=== PATIENT | male | born 1950 | race Two or more races ===

== ENCOUNTER → 2017-07-05 | Outpatient (CLI) | payer MEDICARE, OTHER | END | disposition home or self-care (01) | LOC: CT 11:05 | PROVIDERS: ATTEND Orthopaedic Surgery | DX: M17.12 Unilateral primary osteoarthritis, left knee (principal) | CPT/HCPCS: 73700 ==

== ENCOUNTER 2017-08-07 02:13 | Inpatient (IN) | payer MEDICARE ==
[2017-08-07] VITALS (14 sets, daily range): BP systolic 113–181; BP diastolic 69–98
[~2017-08-07] VITALS: Ht 170.2 cm; Wt 105.2 kg
[~2017-08-07 02:13] MED LIST: ALPR0.5T PO; LOSA100T6 PO; MECL25TA3 PO
[2017-08-07] MEDS ORDERED: NS 250ML 250 ML IV ONE ×2 (04:34→07:33)
[2017-08-07] MEDS ORDERED: ANCEF ONE (04:34)
[2017-08-07] MEDS ORDERED: ANCEF 3 GM in NS 100ML 100 ML IV ONE (06:00)
[2017-08-07] MEDS ORDERED: LACTATED RINGERS 1,000 ML IV SCH ×2 (06:00→11:00)
[2017-08-07] MEDS ORDERED: TRANSDERM-SCOP TD STA (07:04)
[2017-08-07] MEDS ORDERED: DECADRON ONE (07:12)
[2017-08-07] MEDS ORDERED: NAROPIN 0.5% 5 MG/ML VIAL ONE (07:12)
[2017-08-07] MEDS ORDERED: CLONIDINE 1,000 MCG/10 ML VIAL EP ONE (07:13)
[2017-08-07] MEDS ORDERED: NAROPIN 0.2% 40 MG/20 ML VIAL ONE (07:13)
[2017-08-07] MEDS ORDERED: TYLENOL PO ONE (07:30)
[2017-08-07] MEDS ORDERED: NEURONTIN PO SCH (07:30)
[2017-08-07] MEDS ORDERED: CELEBREX PO ONE ×2 (07:30→09:00)
[2017-08-07] MEDS: TYLENOL PO SCH ×3 (07:30→20:44)
[2017-08-07] MEDS ORDERED: NS 3000ML IRR IR ONE (07:33)
[2017-08-07] MEDS ORDERED: SODIUM CHLORIDE IR ONE (07:33)
[2017-08-07] MEDS ORDERED: NS 100ML 200 ML IV ONE (07:33)
[2017-08-07] MEDS ORDERED: LIDOCAINE 2% VIAL ONE ×2 (07:48→07:55)
[2017-08-07] MEDS ORDERED: TRANEXAMIC ACID IV ONE (07:52)
[2017-08-07] MEDS ORDERED: NEOSTIGMINE ONE (07:53)
[2017-08-07] MEDS ORDERED: ZOFRAN ONE (07:54)
[2017-08-07] MEDS ORDERED: ZEMURON IV ONE (07:54)
[2017-08-07] MEDS ORDERED: VERSED ONE (07:54)
[2017-08-07] MEDS ORDERED: SUBLIMAZE ONE ×2 (07:55→09:28)
[2017-08-07] MEDS ORDERED: DIPRIVAN IV ONE (07:55)
[2017-08-07] MEDS ORDERED: EPHEDRINE SULFATE ONE (07:56)
[2017-08-07] MEDS ORDERED: KENALOG-40 ONE (08:11)
[2017-08-07] MEDS ORDERED: AMBIEN PO PRN (11:00)
[2017-08-07] MEDS ORDERED: CEPACOL SORE THROAT LOZENGE MM PRN (11:00)
[2017-08-07] MEDS: LACTATED RINGERS 1,000 ML IV SCH ×2 (11:00→20:45)
[2017-08-07] MEDS ORDERED: MORPHINE SULFATE IV PRN (11:00)
--- NOTE | 2017-08-07 13:01 | HPH ---
ADMIT DATE: 08/07/2017 CHIEF COMPLAINT: Painful left knee. HISTORY OF PRESENT ILLNESS: A 67-year-old male with left knee pain for 2 years. 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 He has pain with just household ambulation as well as significant night pain. He has tried Tylenol as well as Aleve and off the shelf bracing. He has had several cortisone injections with only temporary relief. The patient is being admitted for left total knee arthroplasty. MEDICATIONS: Include losartan. PAST MEDICAL HISTORY: Medical problems include hypertension as well as anxiety and prostate cancer. PAST SURGICAL HISTORY: Surgical procedures none. SOCIAL HISTORY: The patient lives in [place], [place]. He does not smoke currently. He does not drink alcohol. He lives with his family. ALLERGIES: HE IS ALLERGIC TO SULFA AND CIPRO. FAMILY HISTORY: His family history is unknown because he is adopted. REVIEW OF SYSTEMS: The patient's review of systems is negative for chest pain, shortness of breath, nausea, vomiting, melena, hematochezia, dysuria, hematuria, fever, chills or weight loss. PHYSICAL EXAMINATION: VITAL SIGNS: Shows that he is 5 feet 7 inches. He weighs 230 pounds. GENERAL APPEARANCE: Is that of a healthy 67-year-old male, in no acute distress. HEENT: Within normal limits for his age. CHEST: Clear to auscultation. HEART: Regular rate and rhythm, no murmur. ABDOMEN: Soft, nontender, good bowel sounds. EXTREMITIES: The patient's left knee has an obvious varus deformity. There are large osteophytes medially. His knee goes out into full extension, has 110 degrees of flexion. There is obvious crepitation with flexion, extension and a 2+ effusion. His ligaments are stable medially and laterally as well as anteriorly and posteriorly. Hip has good range of motion with no pain. NEUROLOGIC: The patient is awake and alert. He is oriented x 3. Cranial nerves 2-12 are grossly intact. He has 5/5 strength in all muscle groups of the upper extremities as well as both lower extremities. IMAGING STUDIES: The patient's x-rays about the left knee show that he is bone -on-bone in all 3 compartments about the left knee with large osteophytes in all 3 compartments. Right knee has a similar exam, just not quite as severe. ASSESSMENT: Osteoarthritis of both knees, left worse than right. Other diagnoses include hypertension and anxiety. PLAN: The patient is being admitted for left total knee arthroplasty. He also wanted his right knee injected with cortisone while he was under anesthesia. The risks and hazards of the procedure have been discussed with the patient. He understands the risk involved and wants to proceed as planned. Kiet Gonsalves MD DR: TANIKA/puma JOB# [id number]
[2017-08-07] MEDS: ULTRAM PO SCH ×3 (13:09→20:00)
--- NOTE | 2017-08-07 13:18 | OPH ---
DATE OF SURGERY: 08/07/2017 PREOPERATIVE DIAGNOSIS: Osteoarthritis of the left knee. POSTOPERATIVE DIAGNOSIS: Osteoarthritis of the left knee. OPERATIVE PROCEDURE: Left total knee arthroplasty using Medacta, size 5 femur, size 5 tibia, 13 mm insert and a large dome patella. All components were cemented. SURGEON: Kiet Gonsalves MD ANESTHESIA: General endotracheal. TOURNIQUET TIME: 72 minutes at 300 mmHg. DRAINS: None. BLOOD LOSS: 400 mL. DESCRIPTION OF INDICATIONS: The patient is a 67-year-old male with left knee pain for the last 2 years. 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 He has night pain as well as pain with just household ambulation. He is no better with Tylenol and Aleve. He has tried off the shelf bracing as well as cortisone injections and home physical therapy program. He has full range of motion of the knee and obvious varus deformity, large osteophytes medially, 2+ effusion. The x-rays show that he is tricompartmentally qoql-og-fhuq about the left knee. The patient also has a significant amount of OA about the right knee and he wanted his right knee injected today with cortisone when he was under anesthesia. DESCRIPTION OF PROCEDURE: The patient was placed in the operating table in the supine position. A general endotracheal anesthetic was induced without difficulty. The right knee was prepped with alcohol and through a superior lateral portal it was injected with 40 mg of Kenalog. The patient then had the well-padded tourniquet placed around the left thigh. The left lower extremity was then sterilely prepped and draped. The patient had the leg exsanguinated with an Esmarch and then the tourniquet was inflated to 300 mmHg. The knee was flexed to 90 degrees. An anterior incision was made. The incision was taken through the skin and the subcutaneous tissues. The patient had the full thickness flaps developed medially and laterally. The patient then had a medial parapatellar arthrotomy performed. Patella was deviated laterally. The medial and lateral meniscectomies were performed. The medial capsule and the pes anserinus were released around the posterior medial corner. The patient then had the [employer] femoral cutting guide attached to the distal femur and held into position with multiple pins. The distal femoral cut was then made with the power saw. The patient then had the size 5 #2 jig applied to the distal femur. We elevated anteriorly approximately 2 mm to prevent notching and then held the cutting block into position with 2 screws and 2 pins. The anterior and posterior femoral cuts were made as were the chamfer cuts. Tibia was subluxed anteriorly. The medial and lateral meniscectomies were completed. The patient had the anterior and posterior cruciate ligaments excised. The patient then had the tibial cutting block applied to the proximal tibia and held into position with multiple pins. Tibial cut was then made with the power saw. The patient then had the tibia subluxed anteriorly. We then started with a #10 flexion, extension blocks and worked up to a size 13. The 13 cutting block had good stability at 90 degrees of flexion and had full extension with the 13 mm block. The size 5 tibial trial was used and had good coverage. The size 5 trial was held into position with 2 pins. The central drill hole was made and then the cruciate punch was used to stabilize the tibial trial block. A trial reduction was then done with a size 5 femur, a size 5 tibia, a 13 mm insert. The knee went out into full extension. He had 120 degrees of flexion. There was excellent medial and lateral stability throughout. The patient then had the patella everted. The peripheral osteophytes were trimmed and the patellar cut was made and there were still 16 mm patella remaining. The drill holes were made and a large dome patella had the best coverage. There was good tracking of the patella. The final medial and lateral femoral drill holes were made. The femoral sulcus cut was made. The trial components were then removed from the distal femur. The wounds were copiously irrigated and the bone ends were dried. A size 5 tibial component was cemented into position. A size 13 polyethylene insert was impacted and held into position with an anterior screw. The size 5 femoral component was cemented as was the patella. The wound was irrigated with Betadine-containing solution for 3 minutes. The patient then had the excess cement removed after the cement had dried. The tourniquet was released, the bleeding was controlled with the Aquamantys. The capsule was closed with a #2 PDS in interrupted [id number] manner. The joint was injected with a gram of tranexamic acid in 100 mL of saline. The subcutaneous was closed with 2-0 Monocryl barbed in a running manner and then the skin was closed with robert. The patient was extubated in the operating room after a medium size Aquacel dressing was applied and the compressive dressing consisting of 4 x 4s, ABD pads, cast padding and Chriss wrap. The patient was sent to recovery in stable condition. Kiet Gonsalves MD DR: TANIKA/puma JOB# [id number]
[2017-08-07] MEDS: ANCEF 3 GM in NS 1000ML 100 ML IV SCH ×2 (14:38→21:39)
--- NOTE | 2017-08-07 15:19 | PRM.PN ---
Subjective Subjective Date: August 07, 2017 Time: 15:17 Subjective Awake and alert Pain ok VSS Able to dorsiflex toes and ankleon left Stable Patient History: FH: migraines 19 CHILD No known health problems 19 CHILD 19 CHILD No Family History of: Alzheimer's disease Asthma Cerebrovascular disorder Chronic obstructive pulmonary disease Congestive heart failure Diabetes insipidus Diabetes mellitus Hypertension Parkinson's disease VTE VTE Risk Total Score: 4 VTE Risk Score VTE Risk: Score 0-1 = Low Risk (Aggressive mobilization; early ambulation; no VTE prophylaxis required) Score 2: Moderate Risk (Intermittent/Pneumatic Compression Device OR Lovenox/Heparin/Coumadin) Score 3-4: High Risk (Intermittent/Pneumatic Compression Device AND Lovenox/Heparin/Coumadin) Score > or =5: Highest Risk (Intermittent/Pneumatic Compression Device AND Lovenox/Heparin/Coumadin) Review of Systems Allergies: Coded Allergies: Sulfa (Sulfonamide Antibiotics) (Verified Allergy, Severe, Rash, 08/02/17) ciprofloxacin (Unverified Allergy, Unknown, Rash, 08/02/17) Scheduled Losartan Potassium (Losartan Potassium), 1 TAB PO DAILY, (Reported) Scheduled PRN Alprazolam (Xanax), 0.5 TAB PO HS PRN for INSOMNIA, (Reported) Meclizine Hcl (Meclizine Hcl), 1 TAB PO TID PRN for VERTIGO, (Reported) Objective Vitals and I/O Vital Sign - Last 24 Hours 08/07/17 08/07/17 08/07/17 08/07/17 05:52 05:52 07:26 07:31 Temp 97.3 Pulse 81 74 67 Resp B/P (MAP) 181/98 (125) 175/80 (111) 160/94 (116) Pulse Ox 98 100 99 O2 Delivery Room Air Room Air Nasal Canula Nasal Canula O2 Flow Rate 2 2 08/07/17 08/07/17 08/07/17 08/07/17 07:36 07:41 07:46 09:42 Temp 98.1 Pulse 77 68 69 74 Resp 18 B/P (MAP) 162/72 (102) 171/81 (111) 161/69 (99) 113/71 (85) Pulse Ox 99 99 99 98 O2 Delivery Nasal Canula Nasal Canula Nasal Canula Nasal Canula O2 Flow Rate 2 2 2 3 08/07/17 08/07/17 08/07/17 08/07/17 10:41 10:41 10:56 11:09 Temp 98.9 98.1 98.1 Pulse 84 77 80 Resp 18 B/P (MAP) 163/92 (115) 156/90 (112) 165/79 (107) Pulse Ox 99 94 96 O2 Delivery Face Tent Room Air Room Air O2 Flow Rate 5 5 08/07/17 08/07/17 08/07/17 08/07/17 11:18 11:30 12:17 15:10 Temp 98.7 98.0 Pulse 82 64 78 Resp 18 18 12 B/P (MAP) 162/85 (110) 152/94 (113) Pulse Ox 98 100 99 O2 Delivery Nasal Canula Room Air Nasal Cannula Nasal Cannula O2 Flow Rate 2 2.00 1.00 FiO2 24 08/07/17 15:11 Resp 12 Pulse Ox 99 Medication Reconciliation Scheduled Losartan Potassium (Losartan Potassium), 1 TAB PO DAILY, (Reported) Scheduled PRN Alprazolam (Xanax), 0.5 TAB PO HS PRN for INSOMNIA, (Reported) Meclizine Hcl (Meclizine Hcl), 1 TAB PO TID PRN for VERTIGO, (Reported) Course Blood Pressure Systolic: 152 Blood Pressure Diastolic: 94 Blood Pressure Mean: 113 Assessment/Plan Assessment/Plan Patient History: FH: migraines 19 CHILD No known health problems 19 CHILD 19 CHILD No Family History of: Alzheimer's disease Asthma Cerebrovascular disorder Chronic obstructive pulmonary disease Congestive heart failure Diabetes insipidus Diabetes mellitus Hypertension Parkinson's disease AUDREY REED MD August 07, 2017 15:19
[2017-08-07] MEDS ORDERED: ANTIVERT PO PRN (17:30)
[2017-08-07] MEDS ORDERED: XANAX PO PRN (17:30)
[2017-08-07 18:05] LABS: HEMOGLOBIN 13.5 g/dL (13.9-16.3); MEAN CELL HGB 28.2 pg (26-34); MEAN CELL HGB CONCENTRATION 32.2 g/dL (33-37); MEAN CORP VOLUME 87.7 fL (78-100); MEAN PLATELET VOLUME 10.1 fL (7.8-11.0); RED CELL DISTRIBUTION WIDTH 14.8 % (11.5-14.5); WHITE BLOOD CELL 15.2 10^3/uL (4.5-11.0)
[2017-08-07] MEDS: ULTRAM PO PRN (20:45)
[2017-08-07] MEDS ORDERED: CELEBREX ONE (22:40)
[2017-08-08] MEDS: ULTRAM PO PRN ×4 (00:16→23:56)
[2017-08-08 00:42] VITALS: BP 109/64
[2017-08-08] MEDS: TYLENOL PO SCH ×4 (01:30→20:44)
[2017-08-08] MEDS: ULTRAM PO SCH ×6 (04:00→20:00)
[2017-08-08 05:00] VITALS: BP 121/67
[2017-08-08 05:12] LABS: HEMOGLOBIN 12.5 g/dL (13.9-16.3); MEAN CELL HGB 28.5 pg (26-34); MEAN CELL HGB CONCENTRATION 32.6 g/dL (33-37); MEAN CORP VOLUME 87.5 fL (78-100); MEAN PLATELET VOLUME 9.9 fL (7.8-11.0); RED CELL DISTRIBUTION WIDTH 14.7 % (11.5-14.5); WHITE BLOOD CELL 14.6 10^3/uL (4.5-11.0)
[2017-08-08] MEDS: ANCEF 3 GM in NS 1000ML 100 ML IV SCH (05:38)
[2017-08-08] MEDS ORDERED: NEURONTIN PO SCH (07:30)
[2017-08-08 08:32] VITALS: BP 150/81
[2017-08-08] MEDS: XARELTO PO SCH (08:34)
[2017-08-08] MEDS: COZAAR PO SCH (08:36)
[2017-08-08] MEDS: COLACE PO SCH (08:36)
[2017-08-08] MEDS: PEPCID PO SCH (08:36)
--- NOTE | 2017-08-08 09:12 | PRM.PN ---
Subjective Subjective Date: August 08, 2017 Time: 09:10 Subjective Sitting up at bedside Able to perform SLR Painok VSS HGB 12.5 Postop anemia expected Start PT Patient History: FH: migraines 19 CHILD No known health problems 19 CHILD 19 CHILD No Family History of: Alzheimer's disease Asthma Cerebrovascular disorder Chronic obstructive pulmonary disease Congestive heart failure Diabetes insipidus Diabetes mellitus Hypertension Parkinson's disease VTE VTE Risk Total Score: 4 VTE Risk Score VTE Risk: Score 0-1 = Low Risk (Aggressive mobilization; early ambulation; no VTE prophylaxis required) Score 2: Moderate Risk (Intermittent/Pneumatic Compression Device OR Lovenox/Heparin/Coumadin) Score 3-4: High Risk (Intermittent/Pneumatic Compression Device AND Lovenox/Heparin/Coumadin) Score > or =5: Highest Risk (Intermittent/Pneumatic Compression Device AND Lovenox/Heparin/Coumadin) Review of Systems Allergies: Coded Allergies: Sulfa (Sulfonamide Antibiotics) (Verified Allergy, Severe, Rash, 08/02/17) ciprofloxacin (Unverified Allergy, Unknown, Rash, 08/02/17) Scheduled Losartan Potassium (Losartan Potassium), 1 TAB PO DAILY, (Reported) Scheduled PRN Alprazolam (Xanax), 0.5 TAB PO HS PRN for INSOMNIA, (Reported) Meclizine Hcl (Meclizine Hcl), 1 TAB PO TID PRN for VERTIGO, (Reported) Objective Vitals and I/O Vital Sign - Last 24 Hours 08/07/17 08/07/17 08/07/17 08/07/17 09:42 10:41 10:41 10:56 Temp 98.1 98.9 98.1 Pulse 74 84 77 Resp 18 B/P (MAP) 113/71 (85) 163/92 (115) 156/90 (112) Pulse Ox 98 99 94 O2 Delivery Nasal Canula Face Tent Room Air O2 Flow Rate 3 5 5 08/07/17 08/07/17 08/07/17 08/07/17 11:09 11:18 11:30 12:17 Temp 98.1 98.7 98.0 Pulse 80 82 64 Resp 18 18 18 B/P (MAP) 165/79 (107) 162/85 (110) 152/94 (113) Pulse Ox 96 98 100 O2 Delivery Room Air Nasal Canula Room Air Nasal Cannula O2 Flow Rate 2 2.00 08/07/17 08/07/17 08/07/17 08/07/17 15:10 15:11 17:14 20:14 Temp 97.8 98.2 Pulse 78 90 94 Resp 12 18 18 B/P (MAP) 159/95 (116) 154/87 (109) Pulse Ox 99 99 96 94 O2 Delivery Nasal Cannula Room Air Room Air O2 Flow Rate 1.00 FiO2 24 08/07/17 08/08/17 08/08/17 08/08/17 20:26 00:42 02:41 05:00 Temp 97.6 97.6 Pulse 94 63 62 Resp 18 16 16 B/P (MAP) 109/64 (79) 121/67 (85) Pulse Ox 94 95 95 O2 Delivery Nasal Cannula Room Air Room Air Room Air O2 Flow Rate 1.00 08/08/17 08/08/17 08/08/17 08/08/17 08:20 08:32 08:36 08:41 Temp 98.1 Pulse 77 67 Resp 18 16 B/P (MAP) 150/81 (104) 150/81 Pulse Ox 95 97 O2 Delivery Room Air Room Air Room Air FiO2 21 Intake and Output 08/07/17 08/07/17 08/08/17 15:00 23:00 07:00 Intake Total 4945 ml 1000 ml 300 ml Output Total 975 ml 200 ml Balance 4945 ml 25 ml 100 ml Medication Reconciliation Scheduled Losartan Potassium (Losartan Potassium), 1 TAB PO DAILY, (Reported) Scheduled PRN Alprazolam (Xanax), 0.5 TAB PO HS PRN for INSOMNIA, (Reported) Meclizine Hcl (Meclizine Hcl), 1 TAB PO TID PRN for VERTIGO, (Reported) Course Vitals & review Data Vital Sign - Last 24 Hours 08/07/17 08/07/17 08/07/17 08/07/17 09:42 10:41 10:41 10:56 Temp 98.1 98.9 98.1 Pulse 74 84 77 Resp 18 16 18 B/P (MAP) 113/71 (85) 163/92 (115) 156/90 (112) Pulse Ox 98 99 94 O2 Delivery Nasal Canula Face Tent Room Air O2 Flow Rate 3 5 5 08/07/17 08/07/17 08/07/1718 11:09 11:18 11:30 12:17 Temp 98.1 98.7 98.0 Pulse 80 82 64 Resp 18 18 B/P (MAP) 165/79 (107) 162/85 (110) 152/94 (113) Pulse Ox 96 98 100 O2 Delivery Room Air Nasal Canula Room Air Nasal Cannula O2 Flow Rate 2 2.00 08/07/17 08/07/17 08/07/17 08/07/17 15:10 15:11 17:14 20:14 Temp 97.8 98.2 Pulse 78 90 94 Resp 03 14 18 18 B/P (MAP) 159/95 (116) 154/87 (109) Pulse Ox 99 99 96 94 O2 Delivery Nasal Cannula Room Air Room Air O2 Flow Rate 1.00 FiO2 24 08/07/17 08/08/17 08/08/17 08/08/17 20:26 00:42 02:41 05:00 Temp 97.6 97.6 Pulse 94 63 62 Resp 18 16 16 B/P (MAP) 109/64 (79) 121/67 (85) Pulse Ox 94 95 95 O2 Delivery Nasal Cannula Room Air Room Air Room Air O2 Flow Rate 1.00 08/08/17 08/08/17 08/08/17 08/08/17 08:20 08:32 08:36 08:41 Temp 98.1 Pulse 77 67 Resp 18 16 B/P (MAP) 150/81 (104) 150/81 Pulse Ox 95 97 O2 Delivery Room Air Room Air Room Air FiO2 21 Intake and Output 08/07/17 08/07/17 08/08/17 15:00 23:00 07:00 Intake Total 4945 ml 1000 ml 300 ml Output Total 975 ml 200 ml Balance 4945 ml 25 ml 100 ml Laboratory Tests Test 08/07/17 17:55 08/08/17 05:03 White Blood Count 15.2 10^3/uL 14.6 10^3/uL Red Blood Count 4.78 10^6/uL 4.39 10^6/uL Hemoglobin 13.5 g/dL 12.5 g/dL Hematocrit 41.9 % 38.4 % Mean Corpuscular Volume 87.7 fL 87.5 fL Mean Corpuscular Hemoglobin 28.2 pg 28.5 pg Mean Corpuscular Hemoglobin Concent 32.2 g/dL 32.6 g/dL Red Cell Distribution Width 14.8 % 14.7 % Platelet Count 274 10^3/uL 258 10^3/uL Mean Platelet Volume 10.1 fL 9.9 fL Current Medications Medications (Trade) Dose Ordered Sig/Akira PRN Reason Start Time Stop Time Status Last Admin Acetaminophen (Tylenol) 1,000 mg Q6H 08/07/17 07:30 09/06/17 07:29 08/07/17 20:44 Docusate Sodium (Colace) 100 mg DAILY 08/08/17 09:00 09/07/17 08:59 08/08/17 08:36 Famotidine (Pepcid) 20 mg DAILY 08/08/17 09:00 09/07/17 08:59 08/08/17 08:36 Losartan Potassium (Cozaar) 100 mg DAILY 08/08/17 09:00 09/07/17 08:59 08/08/17 08:36 Morphine Sulfate (Morphine Sulfate) 5 mg Q4H PRN PAIN 8-10 08/07/17 11:00 09/06/17 10:59 Rivaroxaban (Xarelto) 10 mg DAILY 08/08/17 09:00 09/07/17 08:59 08/08/17 08:34 Throat Lozenges (Cepacol Sore Throat Lozenge) 1 each PRN PRN SORE THROAT 08/07/17 11:00 09/06/17 10:59 Tramadol HCl (Ultram) 50 mg Q4HR 08/07/17 12:00 09/06/17 11:59 08/08/17 08:36 Tramadol HCl (Ultram) 100 mg Q4HR PRN SEVERE PAIN 08/07/17 11:00 09/06/17 10:59 08/08/17 04:18 Zolpidem Tartrate (Ambien) 5 mg HS PRN INSOMNIA 08/07/17 11:00 09/06/17 10:59 08/07/17 22:43 Assessment/Plan Assessment/Plan Patient History: FH: migraines 19 CHILD No known health problems 19 CHILD 19 CHILD No Family History of: Alzheimer's disease Asthma Cerebrovascular disorder Chronic obstructive pulmonary disease Congestive heart failure Diabetes insipidus Diabetes mellitus Hypertension Parkinson's disease AUDREY REED MD August 08, 2017 09:12
[2017-08-08] MEDS ORDERED: RESTORIL PO PRN (09:30)
[2017-08-08 12:43] VITALS: BP 157/80
--- NOTE | 2017-08-08 14:07 | CNH ---
DATE OF CONSULTATION: 08/07/2017 ADMITTING PHYSICIAN: Kiet Gonsalves MD REASON FOR CONSULTATION: Concurrent postop medical care. HISTORY OF PRESENT ILLNESS: The patient is a very pleasant 67-year-old gentleman who came over from [place] for a left total knee arthroplasty which was done this morning. He has been having longstanding bilateral knee issues with [id number] on x-ray and he had elective left total knee surgery this morning by Dr. Gonsalves. Postoperatively, he is doing well. He states that he has no issues. He has been working with therapy already. He denies any nausea, no chest pain, no shortness of breath, no abdominal pains. He states that he feels actually very good and is optimistic and ready for rehab at this point. PAST MEDICAL HISTORY: Significant for hypertension. He had a prostate cancer and actually had a prostatectomy done. PAST SURGICAL HISTORY: Again, the prostatectomy. MEDICATIONS: He is on include losartan. He had some anxiety issues with his prostate surgery before and he was placed on Xanax and he rarely uses that. He does have motion sickness as he has used [id number]-[id number] meclizine before. ALLERGIES: SULFA AND CIPRO. FAMILY HISTORY: Asked and he is adopted, so unknown at this point. PHYSICAL EXAMINATION: CURRENT VITAL SIGNS: Are as follows: His temperature is 97.8, pulse rate 90, respirations 18, blood pressure is 159/95, O2 sats of 96% on room air. My physical exam is as follows: GENERAL: He is in no acute distress, awake, alert, oriented x 4, very pleasant gentleman. HEENT: Oropharynx is clear. Moist mucous membranes noted. NECK: Supple, no JVD, no bruits. HEART: S1, S2 audible. LUNGS: Clear bilaterally. ABDOMEN: Good bowel sounds, soft abdomen, no rebound, no guarding, no masses. EXTREMITIES: No pitting edema. No rashes, no petechia, no purpura. ASSESSMENT: We have this gentleman status post left total knee arthroplasty with underlying hypertension. We will continue his losartan at home. I will follow along with Dr. Gonsalves while he gets PT and see how he will do. Lisette Dominguez MD DR: DORCAS/puma JOB# [id number]
[2017-08-08 20:00] VITALS: BP 152/80
[2017-08-08 23:56] VITALS: BP 146/84
[2017-08-09] MEDS: TYLENOL PO SCH ×3 (01:30→13:38)
[2017-08-09] MEDS: ULTRAM PO SCH ×4 (04:00→09:21)
[2017-08-09] MEDS: ULTRAM PO PRN ×2 (04:08→13:38)
[2017-08-09 05:13] LABS: HEMOGLOBIN 11.5 g/dL (13.9-16.3); MEAN CELL HGB 28.8 pg (26-34); MEAN CELL HGB CONCENTRATION 32.8 g/dL (33-37); MEAN PLATELET VOLUME 10.2 fL (7.8-11.0); RED CELL DISTRIBUTION WIDTH 14.7 % (11.5-14.5)
[2017-08-09 05:34] VITALS: BP 147/86
--- NOTE | 2017-08-09 08:33 | PRM.PN ---
Subjective Subjective Date: August 09, 2017 Time: 08:32 Subjective Doing well Minimal apin Independent with Stairs HGB 11.5 Postop anemia from surgery expected Wound ok Will dc Patient History: FH: migraines 19 CHILD No known health problems 19 CHILD 19 CHILD No Family History of: Alzheimer's disease Asthma Cerebrovascular disorder Chronic obstructive pulmonary disease Congestive heart failure Diabetes insipidus Diabetes mellitus Hypertension Parkinson's disease VTE VTE Risk Total Score: 4 VTE Risk Score VTE Risk: Score 0-1 = Low Risk (Aggressive mobilization; early ambulation; no VTE prophylaxis required) Score 2: Moderate Risk (Intermittent/Pneumatic Compression Device OR Lovenox/Heparin/Coumadin) Score 3-4: High Risk (Intermittent/Pneumatic Compression Device AND Lovenox/Heparin/Coumadin) Score > or =5: Highest Risk (Intermittent/Pneumatic Compression Device AND Lovenox/Heparin/Coumadin) Review of Systems Allergies: Coded Allergies: Sulfa (Sulfonamide Antibiotics) (Verified Allergy, Severe, Rash, 08/02/17) ciprofloxacin (Unverified Allergy, Unknown, Rash, 08/02/17) Scheduled Losartan Potassium (Losartan Potassium), 1 TAB PO DAILY, (Reported) Scheduled PRN Alprazolam (Xanax), 0.5 TAB PO HS PRN for INSOMNIA, (Reported) Meclizine Hcl (Meclizine Hcl), 1 TAB PO TID PRN for VERTIGO, (Reported) Objective Vitals and I/O Vital Sign - Last 24 Hours 08/08/17 08/08/17 08/08/17 08/08/17 08:32 08:36 08:41 12:43 Temp 98.1 97.4 Pulse 67 67 Resp 16 16 B/P (MAP) 150/81 (104) 150/81 157/80 (105) Pulse Ox 97 99 O2 Delivery Room Air Room Air Room Air 08/08/17 08/08/17 08/08/17 08/08/17 20:00 20:35 21:00 23:56 Temp 97.9 97.7 Pulse 69 69 62 Resp 18 18 18 B/P (MAP) 152/80 (104) 146/84 (104) Pulse Ox 95 95 96 O2 Delivery Room Air Room Air Room Air Room Air 08/09/17 05:34 Temp 97.6 Pulse 68 Resp 18 B/P (MAP) 147/86 (106) Pulse Ox 98 O2 Delivery Room Air Intake and Output 08/08/17 08/08/17 08/09/17 15:00 23:00 07:00 Intake Total 550 ml Output Total 250 ml 2000 ml Balance -250 ml -1450 ml Medication Reconciliation Scheduled Losartan Potassium (Losartan Potassium), 1 TAB PO DAILY, (Reported) Scheduled PRN Alprazolam (Xanax), 0.5 TAB PO HS PRN for INSOMNIA, (Reported) Meclizine Hcl (Meclizine Hcl), 1 TAB PO TID PRN for VERTIGO, (Reported) Course Vitals & review Data Vital Sign - Last 24 Hours 08/07/17 08/07/17 08/07/17 08/07/17 09:42 10:41 10:41 10:56 Temp 98.1 98.9 98.1 Pulse 74 84 77 Resp 18 16 18 B/P (MAP) 113/71 (85) 163/92 (115) 156/90 (112) Pulse Ox 98 99 94 O2 Delivery Nasal Canula Face Tent Room Air O2 Flow Rate 3 5 5 08/07/17 08/07/17 08/07/17 08/07/17 11:09 11:18 11:30 12:17 Temp 98.1 98.7 98.0 Pulse 80 82 64 Resp 18 18 18 B/P (MAP) 165/79 (107) 162/85 (110) 152/94 (113) Pulse Ox 96 98 100 O2 Delivery Room Air Nasal Canula Room Air Nasal Cannula O2 Flow Rate 2 2.00 08/07/17 08/07/17 08/07/17 08/07/17 15:10 15:11 17:14 20:14 Temp 97.8 98.2 Pulse 78 90 94 Resp 12 12 18 18 B/P (MAP) 159/95 (116) 154/87 (109) Pulse Ox 99 99 96 94 O2 Delivery Nasal Cannula Room Air Room Air O2 Flow Rate 1.00 FiO2 24 08/07/17 08/08/17 08/08/17 08/08/17 20:26 00:42 02:41 05:00 Temp 97.6 97.6 Pulse 94 63 62 Resp 18 16 16 B/P (MAP) 109/64 (79) 121/67 (85) Pulse Ox 94 95 95 O2 Delivery Nasal Cannula Room Air Room Air Room Air O2 Flow Rate 1.00 08/08/17 08/08/17 08/08/17 08/08/17 08:20 08:32 08:36 08:41 Temp 98.1 Pulse 77 67 Resp 18 16 B/P (MAP) 150/81 (104) 150/81 Pulse Ox 95 97 O2 Delivery Room Air Room Air Room Air FiO2 21 Intake and Output 08/07/17 08/07/17 08/08/17 15:00 23:00 07:00 Intake Total 4945 ml 1000 ml 300 ml Output Total 975 ml 200 ml Balance 4945 ml 25 ml 100 ml Laboratory Tests Test 08/07/17 17:55 08/08/17 05:03 White Blood Count 15.2 10^3/uL 14.6 10^3/uL Red Blood Count 4.78 10^6/uL 4.39 10^6/uL Hemoglobin 13.5 g/dL 12.5 g/dL Hematocrit 41.9 % 38.4 % Mean Corpuscular Volume 87.7 fL 87.5 fL Mean Corpuscular Hemoglobin 28.2 pg 28.5 pg Mean Corpuscular Hemoglobin Concent 32.2 g/dL 32.6 g/dL Red Cell Distribution Width 14.8 % 14.7 % Platelet Count 274 10^3/uL 258 10^3/uL Mean Platelet Volume 10.1 fL 9.9 fL Current Medications Medications (Trade) Dose Ordered Sig/Akira PRN Reason Start Time Stop Time Status Last Admin Acetaminophen (Tylenol) 1,000 mg Q6H 08/07/17 07:30 09/06/17 07:29 08/07/17 20:44 Docusate Sodium (Colace) 100 mg DAILY 08/08/17 09:00 09/07/17 08:59 08/08/17 08:36 Famotidine (Pepcid) 20 mg DAILY 08/08/17 09:00 09/07/17 08:59 08/08/17 08:36 Losartan Potassium (Cozaar) 100 mg DAILY 08/08/17 09:00 09/07/17 08:59 08/08/17 08:36 Morphine Sulfate (Morphine Sulfate) 5 mg Q4H PRN PAIN 8-10 08/07/17 11:00 09/06/17 10:59 Rivaroxaban (Xarelto) 10 mg DAILY 08/08/17 09:00 09/07/17 08:59 08/08/17 08:34 Throat Lozenges (Cepacol Sore Throat Lozenge) 1 each PRN PRN SORE THROAT 08/07/17 11:00 09/06/17 10:59 Tramadol HCl (Ultram) 50 mg Q4HR 08/07/17 12:00 09/06/17 11:59 08/08/17 08:36 Tramadol HCl (Ultram) 100 mg Q4HR PRN SEVERE PAIN 08/07/17 11:00 09/06/17 10:59 08/08/17 04:18 Zolpidem Tartrate (Ambien) 5 mg HS PRN INSOMNIA 08/07/17 11:00 09/06/17 10:59 08/07/17 22:43 Assessment/Plan Assessment/Plan Patient History: FH: migraines 19 CHILD No known health problems 19 CHILD 19 CHILD No Family History of: Alzheimer's disease Asthma Cerebrovascular disorder Chronic obstructive pulmonary disease Congestive heart failure Diabetes insipidus Diabetes mellitus Hypertension Parkinson's disease AUDREY REED MD August 09, 2017 08:33
[2017-08-09] MEDS: COZAAR PO SCH (09:19)
[2017-08-09] MEDS: COLACE PO SCH (09:19)
[2017-08-09] MEDS: PEPCID PO SCH (09:19)
[2017-08-09 09:20] VITALS: BP 158/98
[2017-08-09] MEDS: XARELTO PO SCH (09:20)
[2017-08-09] MEDS ORDERED: ASPI325T17 PO (09:44)
[2017-08-09] MEDS ORDERED: TEMA15CA6 PO (09:44)
[2017-08-09] MEDS ORDERED: TRAM-47 PO (09:45)
[2017-08-09] MEDS ORDERED: SCOP1PAT11 TP (09:51)
[2017-08-09] MEDS ORDERED: TRANSDERM-SCOP TD STA (11:48)
[2017-08-09 12:56] VITALS: BP 142/76
[2017-08-09 13:45] VITALS: BP 142/76
[2017-08-09] MEDS ORDERED: DURAMORPH IV PRN (14:03)
--- NOTE | 2017-08-09 17:49 | DSH ---
DATE OF DISCHARGE: 08/09/2017 ADMITTING DIAGNOSIS: Osteoarthritis of the left knee. OTHER DIAGNOSES: Include anxiety, and hypertension. DISCHARGE DIAGNOSES: Osteoarthritis of the left knee plus postoperative anemia expected secondary to surgery. OPERATIVE PROCEDURE DATE: 08/07/2017. PROCEDURE PERFORMED: Left total knee arthroplasty. CONSULTATIONS: Will be Dr. Orantes. COMPLICATIONS: None. SUMMARY OF ADMISSION: The patient is a 67-year-old male with a several year history of pain about the left knee secondary to osteoarthritis. He failed conservative treatment as outlined in his history and physical. The patient was [id number] about the medial compartment and his patellofemoral compartment of the left knee. He was taken to the operating room on 08/07/2017 for left total knee arthroplasty for pain relief. The patient's procedure was performed on 08/07/2017 without incident. Postoperatively, the patient has done extremely well. He has had minimal pain postoperatively. He had physical therapy for gait training as well as transfers and ambulation and range of motion. He had occupational therapy for ADLs. On discharge, the patient can transfer in and out of bed independently and he can walk at least 200 feet with his walker. The patient has been on a regular diet, which he tolerated well. His hemoglobin dropped to a low of 11.5, felt to be secondary to postoperative anemia secondary to surgery expected. He is totally asymptomatic. The patient has been on Xarelto as well as foot pump, SCDs and early ambulation for DVT prophylaxis. The patient will be discharged today on 08/09/2017. He will be instructed to use his walker and weightbear as tolerated. He will do physical therapy in [place], [place]. The patient will be instructed to leave his Aquacel dressing intact. We will give him a prescription for tramadol for the pain and instruct him to use aspirin 325 mg twice a day for DVT prophylaxis. The patient will be seen back in the office in a week. Kiet Gonsalves MD DR: TANIKA/puma JOB# [id number]
--- NOTE | 2017-08-11 14:14 | DIREP ---
PROCEDURE:XRAY KNEE 2 VWS-LT COMPARISON:None. INDICATIONS:POST TOTAL LT KNEE FINDINGS: BONES:No acute fracture. JOINTS:Total left knee arthroplasty. The prosthetic joint appears intact and appropriately aligned. SOFT TISSUES:Soft tissue edema and emphysema about the knee is consistent with recent postoperative state, as evidenced by overlying skin robert. CONCLUSION:Postoperative changes of recent total left knee arthroplasty. No suspicious abnormality. Dictated by: Bridger Orantes M.D. on 08/11/2017 at 02:10 PM
== END 2017-08-09 13:45 | disposition home or self-care (01) | DRG 470 ==
LOC: MS 02:13 → EDPENDDISTM 08-09 13:45
PROVIDERS: ADMIT Orthopaedic Surgery; ATTEND Internal Medicine
PROC: 0SRD0J9 Replacement of Left Knee Joint with Synthetic Substitute, Cemented, Open Approach (ICD-10-PCS; principal; 2017-08-07 08:00)
PROC: 3E0U33Z Introduction of Anti-inflammatory into Joints, Percutaneous Approach (ICD-10-PCS; 2017-08-07 08:00)
DX: M17.0 Bilateral primary osteoarthritis of knee (principal); D64.9 Anemia, unspecified; F41.9 Anxiety disorder, unspecified; I10 Essential (primary) hypertension; Z85.46 Personal history of malignant neoplasm of prostate; Z88.2 Allergy status to sulfonamides; Z88.1 Allergy status to other antibiotic agents; Z90.79 Acquired absence of other genital organ(s); Z82.0 Family history of epilepsy and other diseases of the nervous system
CPT/HCPCS: 36415; 85027; 97161; 97165; J0690; J1100; J2001; J2250; J2405; J2795; J3010; J3301; J3490; J7030; J7050; J7120; 73560-LT; 97116-GP; 97760-GP; A9270; G8978-CK; G8979-CJ; G8987; G8988; J2710; J8499

== ENCOUNTER → 2017-09-27 | Outpatient (CLI) | payer MEDICARE ==
[~2017-09-27] MED LIST changes: +ASPI325T17 PO; +SCOP1PAT11 TP; +TEMA15CA6 PO; +TRAM-47 PO
== END | disposition home or self-care (01) ==
LOC: CT 11:08
PROVIDERS: ATTEND Orthopaedic Surgery
DX: M17.11 Unilateral primary osteoarthritis, right knee (principal)
CPT/HCPCS: 73700

== ENCOUNTER 2017-11-06 01:24 | Inpatient (IN) | payer MEDICARE ==
[~2017-11-06] VITALS: Ht 170.2 cm; Wt 108.2 kg
[2017-11-06] VITALS (14 sets, daily range): BP systolic 139–183; BP diastolic 67–108
[2017-11-06] MEDS ORDERED: ANCEF ONE (05:29)
[2017-11-06] MEDS ORDERED: NS 250ML 250 ML IV ONE ×2 (05:31→08:33)
--- NOTE | 2017-11-06 07:59 | DIREP ---
PROCEDURE:CHEST 2 VIEWS COMPARISON:None. INDICATIONS:PRE OP, KNEE REPLACEMENT FINDINGS: LUNGS/PLEURA:No significant pulmonary parenchymal abnormalities. No effusions. VASCULATURE:Normal. Unremarkable pulmonary vasculature. CARDIAC:Normal. No cardiac silhouette abnormality or cardiomegaly. MEDIASTINUM:Normal. No visible mass or adenopathy. BONES:Degenerative changes of the shoulders and spine. No acute abnormality identified. OTHER:Negative. CONCLUSION:No acute cardiopulmonary abnormality. Dictated by: Bridger Orantes M.D. on 11/06/2017 at 07:54 AM
--- NOTE | 2017-11-06 08:08 | PCM.EKG ---
[facility] Test Date: 2017-11-06 Test Time: 08:10:35 Pat Name: KIRA DOS SANTOS Department: Patient ID: [facility]-[id number] Room: Gender: M Digital Media Manager: KASHIF : 1950 Requested By: AUDREY REED Order Number: [id number] Reading MD: Elida Carr Measurements Intervals [place] Rate: 67 P: 67 OK: 166 QRS: -27 QRSD: 92 T: 54 QT: 386 QTc: 407 Interpretive Statements Normal sinus rhythm with sinus arrhythmia Normal ECG No previous ECG available for comparison Electronically Signed On 11-11-2017 2:18:45 CDT by Elida Carr Please click the below link to view image of tracing.
[2017-11-06 08:12] LABS: BASOPHIL % 0.3 % (0.0-0.2); EOSINOPHIL # 0.2 10^3/uL (0.0-0.2); HEMOGLOBIN 14.1 g/dL (13.9-16.3); LYMPHOCYTES # 3.1 10^3/uL (1.0-4.8); LYMPHOCYTES % 36.4 % (24.0-44.0); MEAN CELL HGB 28.3 pg (26-34); MEAN CELL HGB CONCENTRATION 33.1 g/dL (33-37); MEAN CORP VOLUME 85.4 fL (78-100); MEAN PLATELET VOLUME 10.2 fL (7.8-11.0); MONOCYTES # 0.9 10^3/uL (0.3-0.8); MONOCYTES % 10.2 % (5.0-12.0); NEUTROPHIL # 4.4 10^3/uL (1.8-7.7); NEUTROPHILS % 50.8 % (41.0-85.0); RED CELL DISTRIBUTION WIDTH 14.4 % (11.5-14.5); WHITE BLOOD CELL 8.6 10^3/uL (4.5-11.0)
[2017-11-06] MEDS: LACTATED RINGERS 1,000 ML IV SCH ×5 (08:20→21:36)
[2017-11-06 08:26] LABS: CALCIUM 9.4 mg/dL (8.4-10.5); CARBON DIOXIDE 22.1 mmol/L (20.0-32)
[2017-11-06] MEDS ORDERED: SODIUM CHLORIDE IR ONE (08:33)
[2017-11-06] MEDS ORDERED: NS 3000ML IRR IR ONE (08:33)
[2017-11-06] MEDS ORDERED: NS 100ML 200 ML IV ONE (08:33)
[2017-11-06] MEDS ORDERED: TRANEXAMIC ACID IV ONE (08:38)
[2017-11-06] MEDS ORDERED: TYLENOL PO ONE (08:49)
[2017-11-06] MEDS ORDERED: CELEBREX ONE (08:49)
[2017-11-06] MEDS ORDERED: TRANSDERM-SCOP TD ONE (08:49)
[2017-11-06] MEDS ORDERED: NEURONTIN ONE (08:49)
[2017-11-06] MEDS ORDERED: TRANSDERM-SCOP TD STA (08:54)
[2017-11-06] MEDS ORDERED: ZEMURON IV ONE (08:57)
[2017-11-06] MEDS ORDERED: LIDOCAINE 2% VIAL ONE ×2 (08:57→09:12)
[2017-11-06] MEDS ORDERED: DIPRIVAN IV ONE (08:57)
[2017-11-06] MEDS ORDERED: QUELICIN ONE (08:57)
[2017-11-06] MEDS ORDERED: DILAUDID ONE (08:59)
[2017-11-06] MEDS ORDERED: DECADRON ONE (08:59)
[2017-11-06] MEDS ORDERED: NS 100ML 100 ML IV ONE (08:59)
[2017-11-06] MEDS ORDERED: ZOFRAN ONE (08:59)
[2017-11-06] MEDS: TYLENOL PO SCH ×5 (09:00→21:30)
[2017-11-06] MEDS ORDERED: SUBLIMAZE ONE (09:00)
[2017-11-06] MEDS ORDERED: CELEBREX PO SCH ×2 (09:00→21:00)
[2017-11-06] MEDS ORDERED: NEURONTIN PO SCH (09:00)
[2017-11-06] MEDS ORDERED: PHENERGAN IV PRN (09:00)
[2017-11-06] MEDS ORDERED: LACTATED RINGERS 1,000 ML IV SCH ×2 (09:00→15:30)
[2017-11-06] MEDS ORDERED: DILAUDID IV PRN ×2 (09:00→16:30)
[2017-11-06] MEDS ORDERED: ZOFRAN IV PRN (09:00)
[2017-11-06] MEDS ORDERED: TYLENOL PO SCH (09:00)
[2017-11-06] MEDS ORDERED: NAROPIN 0.5% 5 MG/ML VIAL ONE (09:01)
[2017-11-06] MEDS ORDERED: SENSORCAINE-MPF 0.5% VIAL ONE (09:01)
[2017-11-06] MEDS ORDERED: NAROPIN 0.2% 40 MG/20 ML VIAL ONE (09:01)
[2017-11-06] MEDS ORDERED: NEOSTIGMINE ONE (09:02)
[2017-11-06] MEDS ORDERED: CLONIDINE 1,000 MCG/10 ML VIAL EP ONE (09:02)
[2017-11-06] MEDS ORDERED: VERSED ONE (09:12)
[2017-11-06] MEDS ORDERED: EXPAREL 266 MG/20 ML VIAL IJ ONE (12:24)
[2017-11-06] MEDS: APRESOLINE IV PRN ×2 (15:28→15:50)
--- NOTE | 2017-11-06 15:28 | HPH ---
ADMIT DATE: 11/06/2017 CHIEF COMPLAINT: Painful right knee. HISTORY OF PRESENT ILLNESS: A 67-year-old male with right knee pain for several years. He has night pain as well as pain with just household ambulation. He has frequent giving way about the knee. He is no better with Advil or Tylenol. He has tried physical therapy as well as off the shelf bracing. He has gotten temporary relief from a cortisone injection. MEDICATIONS: Include losartan. PAST MEDICAL HISTORY: Include history of prostate cancer and hypertension. PAST SURGICAL HISTORY: Left total knee arthroplasty. FAMILY HISTORY: Unknown. REVIEW OF SYSTEMS: Negative for chest pain, shortness of breath, nausea, vomiting, melena, hematochezia, dysuria, hematuria, fever, chills or weight loss. ALLERGIES: The patient is allergic to SULFA and CIPRO. SOCIAL HISTORY: He lives in [place] with his . He does not smoke or drink. PHYSICAL EXAMINATION: VITAL SIGNS: Shows that he is 5 feet 7 inches. He weighs 230 pounds. GENERAL APPEARANCE: A healthy 67-year-old male in no acute distress. HEENT: Within normal limits for his age. CHEST: Clear to auscultation bilaterally. HEART: Regular rate and rhythm, no murmurs. ABDOMEN: Soft, nontender, good bowel sounds. EXTREMITIES: The right knee has a varus deformity. He has full extension with 110 degrees of flexion, moderate crepitation, good medial and lateral stability, 2+ effusion. NEUROLOGIC: He is awake and alert. He is oriented x 3. His cranial nerves 2-12 are grossly intact. He has 5/5 strength in all muscle groups bilaterally, symmetric of the upper and lower extremities. IMAGING STUDIES: His x-rays show that he has obvious varus deformity. He is tricompartmentally bone on bone. ASSESSMENT: Severe osteoarthritis, right knee. Other diagnoses include hypertension. PLAN: The patient is being admitted for right total knee arthroplasty. The risks and hazards of the procedure have been discussed with the patient. He understands the risk involved and wants to proceed as planned. Kiet Gonsalves MD DR: TANIKA/puma JOB# [id number]
[2017-11-06] MEDS ORDERED: CEPACOL SORE THROAT LOZENGE MM PRN (15:30)
[2017-11-06] MEDS ORDERED: XANAX PO PRN (15:30)
[2017-11-06] MEDS ORDERED: ANTIVERT PO PRN (15:30)
[2017-11-06] MEDS ORDERED: TRANSDERM-SCOP TD PRN (15:30)
--- NOTE | 2017-11-06 16:00 | NUR ---
PATIENT BROUGHT FROM VIA BED BY GAGE THOMAS. PATIENT AWAKE AND ALERT. V/S PULSE-73 RESP-19 TEMP. 97.6 02-96. PAIN 0. BP 160/98. SIDE RAMAYRA X2 Signed: 11/06/17 at 1608 by Francesca Moss RN-M/James THOMAS
--- NOTE | 2017-11-06 16:19 | DIREP ---
PROCEDURE:XRAY KNEE 2 VWS-RT COMPARISON:None. INDICATIONS:post total knee FINDINGS: Postoperative radiographs demonstrate right total knee arthroplasty components to be in anatomic alignment without evidence of fracture. CONCLUSION: 1. Right total knee arthroplasty in anatomic alignment postoperatively. Dictated by: Rafa Alvarez M.D. on 11/06/2017 at 04:17 PM
[2017-11-06] MEDS: ANCEF 3 GM in NS 100ML 100 ML IV SCH (16:27)
[2017-11-06] MEDS: ULTRAM PO SCH ×2 (16:27→20:00)
[2017-11-06 18:06] LABS: HEMOGLOBIN 13.7 g/dL (13.9-16.3); MEAN CELL HGB 28.2 pg (26-34); MEAN CELL HGB CONCENTRATION 32.6 g/dL (33-37); MEAN CORP VOLUME 86.4 fL (78-100); MEAN PLATELET VOLUME 10.1 fL (7.8-11.0); RED CELL DISTRIBUTION WIDTH 14.6 % (11.5-14.5)
--- NOTE | 2017-11-06 19:07 | OPH ---
DATE OF SURGERY: 11/06/2017 PREOPERATIVE DIAGNOSIS: Osteoarthritis of the right knee. POSTOPERATIVE DIAGNOSIS: Osteoarthritis of the right knee. OPERATIVE PROCEDURE: Right total knee arthroplasty. ANESTHESIA: General endotracheal. SURGEON: Kiet Gonsalves MD OPERATIVE PROCEDURE: Right total knee arthroplasty using Medacta sphere knee, size 5 femur, a 5 tibia, a 12 mm insert, a medium size dome patella. All components were cemented. BLOOD LOSS: 400 mL. DRAINS: None. TOURNIQUET TIME: 78 minutes at 300 mmHg. DESCRIPTION OF INDICATIONS: The patient is a 67-year-old male with right knee pain for many years. He has pain with household ambulation as well as night pain and giving way about the knee. Basically, he has failed conservative treatment. He is tricompartmentally ayyd-[id number] about the right knee and was taken to the operating room today for right total knee replacement. DESCRIPTION OF PROCEDURE: The patient was placed in the operating table in the supine position. General endotracheal anesthetic was induced without difficulty. A well-padded tourniquet was placed about the right thigh. The right lower extremity was then sterilely prepped and draped. Right lower extremity was then exsanguinated with an Esmarch and tourniquet was inflated to 300 mmHg. The knee was flexed to 90 degrees. An anterior incision was made. Incision was taken through the skin and the subcutaneous tissues. The patient had full thickness flaps developed medially and laterally. Medial parapatellar arthrotomy was performed. The patient had the patella deviated laterally. The patient then had the medial and lateral meniscectomies performed. The anterior and posterior cruciate ligaments were excised. The patient then had the capsule and the MCL released around the posterior medial corner. The patient had the SkyfiberKnee femoral cutting guide placed about the distal femur. The cutting guide was held into position with multiple pins. The distal femoral cut was then made with the power saw. The #2 size 5 jig was applied to the distal femur and held into position with 2 pins and 2 screws. The anterior and posterior femoral cuts as well as the chamfer cuts were then made. The tibia was then subluxed anteriorly. The SkyfiberKnee tibial cutting guide was placed about the proximal tibia and held into position with multiple screws. The tibial cut was then made with the power saw. The flexion, extension blocks were used and with the 12 mm blocks, he had good stability at 90 degrees of flexion and good stability in full extension. The patient then had the size 5 tibial trial placed about the proximal tibia and held in position with 2 pins. The central drill hole was made and then the cruciate punch was used to stabilize the tibial component. A trial reduction was done with a 5 femur, a 5 tibia, a 12 mm insert. The knee easily went out into full extension. He had 120 degrees of passive flexion, excellent medial and lateral stability throughout the range of motion. The patella was everted. It measured 23 mm. The patellar cut was made. There were still 16 mm of patella left. The patient had the drill holes made and a medium dome patella had the best coverage. There was good tracking of the patella. The patient then had all the final medial and lateral femoral drill holes made. The femoral sulcus cut was made. The patient had the trial components removed and then the bone ends were copiously irrigated and dried. A size 5 tibial component was cemented. The 12 mm insert was impacted and secured with an anterior screw. The size 5 femoral component was likewise cemented as was the patella. Once all the components had the cement removed and the cement had hardened, the wounds were irrigated for 3 minutes with Betadine-containing solution. The excess cement had been removed. Tourniquet was released and the bleeding was controlled with the Aquamantys. The capsule was closed with a #2 PDS in an interrupted [id number] manner. The joint was injected with a gram of tranexamic acid and 70 mL of saline. Subcutaneous was then closed with a 2-0 Monocryl barbed in a running manner and then the skin was closed with robert. A Prevena suction type dressing was applied. The patient was extubated in the operating room, sent to recovery in stable condition. Kiet Gonsalves MD DR: TANIKA/puma JOB# [id number]
--- NOTE | 2017-11-06 19:15 | PRM.PN ---
Subjective Subjective Date: Nov 06, 2017 Time: 19:14 Subjective Pain ok Afebrile NVM+ HGB 13.8 Stable Patient History: FH: migraines 19 CHILD No known health problems 19 CHILD 19 CHILD No Family History of: Alzheimer's disease Asthma Cerebrovascular disorder Chronic obstructive pulmonary disease Congestive heart failure Diabetes insipidus Diabetes mellitus Hypertension Parkinson's disease VTE VTE Risk Total Score: 4 VTE Risk Score VTE Risk: Score 0-1 = Low Risk (Aggressive mobilization; early ambulation; no VTE prophylaxis required) Score 2: Moderate Risk (Intermittent/Pneumatic Compression Device OR Lovenox/Heparin/Coumadin) Score 3-4: High Risk (Intermittent/Pneumatic Compression Device AND Lovenox/Heparin/Coumadin) Score > or =5: Highest Risk (Intermittent/Pneumatic Compression Device AND Lovenox/Heparin/Coumadin) Review of Systems Allergies: Coded Allergies: Sulfa (Sulfonamide Antibiotics) (Verified Allergy, Severe, Rash, 11/02/17) ciprofloxacin (Unverified Allergy, Unknown, Rash, 11/02/17) Scheduled Losartan Potassium (Losartan Potassium), 1 TAB PO DAILY, (Reported) Temazepam (Restoril), 1 CAP PO HS, (Reported) Scheduled PRN Alprazolam (Xanax), 0.5 TAB PO HS PRN for INSOMNIA, (Reported) Meclizine Hcl (Meclizine Hcl), 1 TAB PO TID PRN for VERTIGO, (Reported) Scopolamine (Transderm-Scop), 1 PATCH TP Q72H PRN for DIZZINESS, (Reported) Tramadol Hcl (Ultram), 1-2 TAB PO Q6 PRN for PAIN, (Reported) Discontinued Medications Aspirin (Aspirin Ec), 1 TAB PO BID, (Reported) Discontinued Reason: No Longer Taking Objective Vitals and I/O Vital Sign - Last 24 Hours 11/06/17 11/06/17 11/06/17 11/06/17 07:44 07:44 10:32 10:37 Temp 98 98.0 Pulse 81 59 58 Resp 16 16 16 B/P (MAP) 183/93 (123) 174/79 (110) 146/81 (102) Pulse Ox 96 99 99 O2 Delivery Room Air Room Air Nasal Canula Nasal Canula O2 Flow Rate 2 2 11/06/17 11/06/17 11/06/17 11/06/17 10:48 15:06 15:06 15:11 Temp 98.2 98.2 Pulse 54 72 72 Resp 16 19 16 B/P (MAP) 139/82 (101) 148/95 (112) 154/87 (109) Pulse Ox 100 98 98 O2 Delivery Nasal Canula Room Air Nasal Canula O2 Flow Rate 2 3 2 11/06/17 11/06/1718 11/06/17 15:16 15:21 15:26 15:28 Pulse 70 72 74 70 Resp 16 16 16 B/P (MAP) 177/100 (125) 181/108 (132) 178/107 (130) 177/100 Pulse Ox 99 98 91 O2 Delivery Nasal Canula Nasal Canula Nasal Canula O2 Flow Rate 2 2 2 11/06/17 11/06/17 11/06/17 11/06/17 15:31 15:36 15:41 15:50 Temp 97.4 97.4 Pulse 70 69 73 174 Resp 16 16 16 B/P (MAP) 178/107 (130) 167/98 (121) 160/90 (113) 94/73 Pulse Ox 98 96 95 O2 Delivery Room Air Room Air Room Air 11/06/17 11/06/17 11/06/17 16:00 16:33 18:38 Pulse 72 Resp 16 16 B/P (MAP) 160/98 (118) Pulse Ox 96 95 O2 Delivery Room Air Room Air Course Sepsis Screening Results: Posi: NEGATIVE Sepsis Qualifier/Stage: NO DEFINITE RISK Vitals & review Data Vital Sign - Last 24 Hours 11/06/17 11/06/17 11/06/17 11/06/17 07:44 07:44 10:32 10:37 Temp 98 98.0 Pulse 81 59 58 Resp 16 16 16 B/P (MAP) 183/93 (123) 174/79 (110) 146/81 (102) Pulse Ox 96 99 99 O2 Delivery Room Air Room Air Nasal Canula Nasal Canula O2 Flow Rate 2 2 11/06/17 11/06/17 11/06/17 11/06/17 10:48 15:06 15:06 15:11 Temp 98.2 98.2 Pulse 54 72 72 Resp 16 19 16 B/P (MAP) 139/82 (101) 148/95 (112) 154/87 (109) Pulse Ox 100 98 98 O2 Delivery Nasal Canula Room Air Nasal Canula O2 Flow Rate 2 3 2 11/06/17 11/06/17 11/06/17 11/06/17 15:16 15:21 15:26 15:28 Pulse 70 72 74 70 Resp 16 16 16 B/P (MAP) 177/100 (125) 181/108 (132) 178/107 (130) 177/100 Pulse Ox 99 98 91 O2 Delivery Nasal Canula Nasal Canula Nasal Canula O2 Flow Rate 2 2 2 11/06/17 11/06/17 11/06/17 11/06/17 15:31 15:36 15:41 15:50 Temp 97.4 97.4 Pulse 70 69 73 174 Resp 16 16 16 B/P (MAP) 178/107 (130) 167/98 (121) 160/90 (113) 94/73 Pulse Ox 98 96 95 O2 Delivery Room Air Room Air Room Air 11/06/17 11/06/17 11/06/17 16:00 16:33 18:38 Pulse 72 Resp 16 16 B/P (MAP) 160/98 (118) Pulse Ox 96 95 O2 Delivery Room Air Room Air Laboratory Tests Test 11/06/17 08:00 11/06/17 17:52 White Blood Count 8.6 10^3/uL 13.0 10^3/uL Red Blood Count 4.99 10^6/uL 4.86 10^6/uL Hemoglobin 14.1 g/dL 13.7 g/dL Hematocrit 42.6 % 42.0 % Mean Corpuscular Volume 85.4 fL 86.4 fL Mean Corpuscular Hemoglobin 28.3 pg 28.2 pg Mean Corpuscular Hemoglobin Concent 33.1 g/dL 32.6 g/dL Red Cell Distribution Width 14.4 % 14.6 % Platelet Count 297 10^3/uL 278 10^3/uL Mean Platelet Volume 10.2 fL 10.1 fL Neutrophils (%) (Auto) 50.8 % Lymphocytes (%) (Auto) 36.4 % Monocytes (%) (Auto) 10.2 % Neutrophils # (Auto) 4.4 10^3/uL Lymphocytes # (Auto) 3.1 10^3/uL Monocytes # (Auto) 0.9 10^3/uL Absolute Immature Granulocyte (auto 0.03 10^3 u/L Eosinophils % 2.0 % Basophils % 0.3 % Basophils # 0.0 10^3/uL Eosinophil Count 0.2 10^3/uL Sodium Level 141 mmol/L Potassium Level 3.8 mmol/L Chloride Level 105.0 mmol/L Carbon Dioxide Level 22.1 mmol/L Glucose Level 122 mg/dL Blood Urea Nitrogen 13 mg/dL Creatinine 1.12 mg/dL Calcium Level 9.4 mg/dL Anion Gap 17.7 Estimated GFR () 79.1 BUN/Creatinine Ratio 11.0 Percent Immature Gran (Cell Imm) 0.30 % Current Medications Medications (Trade) Dose Ordered Sig/Akira PRN Reason Start Time Stop Time Status Last Admin Acetaminophen (Tylenol) 1,000 mg Q6H 11/06/17 09:00 12/06/17 08:59 Acetaminophen (Tylenol) 1,000 mg Q6H 11/06/17 15:30 12/06/17 15:29 11/06/17 16:28 Alprazolam (Xanax) 0.25 mg HS PRN INSOMNIA 11/06/17 15:30 12/06/17 15:29 Cefazolin Sodium 3 gm/Sodium Chloride 100 ml @ 100 mls/hr Q8H 11/06/17 16:00 11/07/17 08:59 11/06/17 16:27 Celecoxib (Celebrex) 200 mg Q12HR 11/06/17 21:00 11/06/17 21:01 Docusate Sodium (Colace) 100 mg DAILY 11/07/17 09:00 12/07/17 08:59 Famotidine (Pepcid) 20 mg DAILY 11/07/17 09:00 12/07/17 08:59 Gabapentin (Neurontin) 400 mg Q24HRS 11/07/17 09:00 11/07/17 09:01 Hydralazine HCl (Apresoline) 5 mg Q5MIN PRN HYPERTENSION 11/06/17 15:30 12/06/17 15:29 11/06/17 15:50 Hydromorphone HCl (Dilaudid) 0.2 mg Q5MIN PRN PAIN MILD 11/06/17 09:00 11/07/17 08:59 Hydromorphone HCl (Dilaudid) 1 mg Q4H PRN PAIN 11/06/17 16:30 12/06/17 16:29 Losartan Potassium (Cozaar) 100 mg DAILY 11/07/17 09:00 12/07/17 08:59 Meclizine HCl (Antivert) 25 mg TID PRN VERTIGO 11/06/17 15:30 12/06/17 15:29 Ondansetron HCl (Zofran) 4 mg PRN PRN nv 11/06/17 09:00 11/11/17 08:59 Promethazine HCl (Phenergan) 6.25 mg PRN PRN NAUSEA / VOMITING 11/06/17 09:00 11/11/17 08:59 Rivaroxaban (Xarelto) 10 mg DAILY 11/08/17 09:00 12/08/17 08:59 Scopolamine (Transderm-Scop) 1 each Q72H PRN DIZZINESS 11/06/17 15:30 12/06/17 15:29 Temazepam (Restoril) 15 mg HS 11/06/17 21:00 12/06/17 20:59 Throat Lozenges (Cepacol Sore Throat Lozenge) 1 each PRN PRN SORE THROAT 11/06/17 15:30 12/06/17 15:29 Tramadol HCl (Ultram) 50 mg Q4HR 11/06/17 16:00 12/06/17 15:59 11/06/17 16:27 Tramadol HCl (Ultram) 100 mg Q4HR PRN SEVERE PAIN 11/06/17 15:30 12/06/17 15:29 AUDREY REED MD Nov 06, 2017 19:15
--- NOTE | 2017-11-06 19:22 | NUR ---
REPORT GIVEN TO PIOTR THOMAS. CARE RELINQUISHED.
[2017-11-06] MEDS: ULTRAM PO PRN (21:33)
[2017-11-06] MEDS: RESTORIL PO SCH (21:34)
[2017-11-07] MEDS: ANCEF 3 GM in NS 100ML 100 ML IV SCH ×2 (00:33→08:11)
[2017-11-07] MEDS: ULTRAM PO SCH ×6 (01:10→20:00)
[2017-11-07] MEDS: LACTATED RINGERS 1,000 ML IV SCH ×8 (01:30→22:00)
[2017-11-07 01:47] VITALS: BP 117/64
[2017-11-07] MEDS: TYLENOL PO SCH ×7 (03:00→21:30)
[2017-11-07 05:45] VITALS: BP 141/78
[2017-11-07 06:27] LABS: HEMOGLOBIN 12.3 g/dL (13.9-16.3); MEAN CELL HGB 27.9 pg (26-34); MEAN CELL HGB CONCENTRATION 32.3 g/dL (33-37); MEAN CORP VOLUME 86.4 fL (78-100); MEAN PLATELET VOLUME 10.2 fL (7.8-11.0); RED CELL DISTRIBUTION WIDTH 14.6 % (11.5-14.5)
[2017-11-07 07:12] VITALS: BP 159/76
--- NOTE | 2017-11-07 07:14 | NUR ---
REPORT RECEIVED FROM DARREN Naranjo RN. [facility].
[2017-11-07] MEDS: COZAAR PO SCH (08:09)
[2017-11-07] MEDS: COLACE PO SCH (08:10)
[2017-11-07] MEDS: PEPCID PO SCH (08:10)
[2017-11-07] MEDS ORDERED: NEURONTIN PO SCH (09:00)
--- NOTE | 2017-11-07 11:00 | NUR ---
DISCHARGE PLAN CM VISITED WITH PATIENT AND CONCERNING PATIENTS DISCHARGE PLAN AND NEED. PATIENT LIVES @ HOME WITH HIS IN [place], [place]. 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 PATIENT HAS ALL HIS DME IN PLACE FROM PAST PREVIOUS LT TKA. HE ALSO STATED HE WANTED TO CONTINUE HIS PHYSICAL THERAPY NEEDS OUT PT @ A PHYSICAL THERAPY COMPANY IN [place] AND HIS FIRST APPOINTMENT IS ALREADY ARRANGED FOR MONDAY PER HIS DAUGHTER. HE IS JUST NEEDING THE PHYSICAL THERAPY ORDER. PATIENT DENIES NEEDING ADDITIONAL RESOURCES @ THIS TIME WITH CONTACT INFORMATION PROVIDED. CURRENT GOAL FOR PATIENT IS TO DISCHARGE BACK HOME WITH TO ROUTINE SELF CARE AND CONTINUE HIS PHYSICAL THERAPY NEEDS OUT PT IN [place]. MED SURG CHARGE NURSE Skylar COLBERT RN NOTIFIED OF PATIENTS PHYSICAL THERAPY ORDER NEED AND OF ABOVE DOCUMENTATION. CM TO CONTINUE TO FOLLOW PATIENTS PLAN OF CARE AND FOR FURTHER DISCHARGE NEEDS.
[2017-11-07 12:23] VITALS: BP 141/72
--- NOTE | 2017-11-07 13:20 | NUR ---
Post Anesthesia Visit Mr. Deleon had Knee surgery yesterday and was given a femoral, adductor canal and an IPAK block for post operative pain management. Mr Deleon stated that as we spoke, his pain level was 0 out of 10 and when he stands or moves, he has a small amount of incisional pain, rated 2 of 10. He is very pleased with his progress. No apparent post anesthetic or post block complications noted
--- NOTE | 2017-11-07 13:37 | NUR ---
PATIENT AMBULATING IN HALLWAY WITH PHYSICAL THERAPY
[2017-11-07 17:54] VITALS: BP 149/76
--- NOTE | 2017-11-07 18:28 | PRM.PN ---
Subjective Subjective Date: Nov 07, 2017 Time: 18:26 Subjective No pain ambulatory with Walker HGB 12 NVM+ Cont with PT Patient History: FH: migraines 19 CHILD No known health problems 19 CHILD 19 CHILD No Family History of: Alzheimer's disease Asthma Cerebrovascular disorder Chronic obstructive pulmonary disease Congestive heart failure Diabetes insipidus Diabetes mellitus Hypertension Parkinson's disease VTE VTE Risk Total Score: 4 VTE Risk Score VTE Risk: Score 0-1 = Low Risk (Aggressive mobilization; early ambulation; no VTE prophylaxis required) Score 2: Moderate Risk (Intermittent/Pneumatic Compression Device OR Lovenox/Heparin/Coumadin) Score 3-4: High Risk (Intermittent/Pneumatic Compression Device AND Lovenox/Heparin/Coumadin) Score > or =5: Highest Risk (Intermittent/Pneumatic Compression Device AND Lovenox/Heparin/Coumadin) Review of Systems Allergies: Coded Allergies: Sulfa (Sulfonamide Antibiotics) (Verified Allergy, Severe, Rash, 11/02/17) ciprofloxacin (Unverified Allergy, Unknown, Rash, 11/02/17) Scheduled Losartan Potassium (Losartan Potassium), 1 TAB PO DAILY, (Reported) Temazepam (Restoril), 1 CAP PO HS, (Reported) Scheduled PRN Alprazolam (Xanax), 0.5 TAB PO HS PRN for INSOMNIA, (Reported) Meclizine Hcl (Meclizine Hcl), 1 TAB PO TID PRN for VERTIGO, (Reported) Scopolamine (Transderm-Scop), 1 PATCH TP Q72H PRN for DIZZINESS, (Reported) Tramadol Hcl (Ultram), 1-2 TAB PO Q6 PRN for PAIN, (Reported) Discontinued Medications Aspirin (Aspirin Ec), 1 TAB PO BID, (Reported) Discontinued Reason: No Longer Taking Objective Vitals and I/O Vital Sign - Last 24 Hours 11/06/17 11/06/17 11/06/17 11/06/17 18:38 20:04 20:53 23:34 Temp 97.6 97.6 Pulse 60 63 Resp 16 16 16 B/P (MAP) 140/67 (91) Pulse Ox 95 94 96 O2 Delivery Room Air Room Air Room Air FiO2 21 11/07/17 11/07/17 11/07/17 11/07/17 01:47 05:45 07:12 08:09 Temp 97.8 97.8 98.1 97.8 97.8 98.1 Pulse 82 60 60 Resp 20 20 20 B/P (MAP) 117/64 (81) 141/78 (99) 159/76 (103) 159/76 Pulse Ox 93 93 95 O2 Delivery Room Air Room Air Room Air 11/07/17 11/07/17 11/07/17 11/07/17 09:42 12:23 15:19 17:54 Temp 97.4 98.3 97.4 98.3 Pulse 60 54 58 Resp 20 18 18 B/P (MAP) 141/72 (95) 149/76 (100) Pulse Ox 98 95 96 O2 Delivery Room Air Room Air Room Air Room Air Intake and Output 11/06/17 11/06/17 11/07/17 15:00 23:00 07:00 Intake Total 300 ml 4750 ml 600 ml Output Total 675 ml 800 ml Balance 300 ml 4075 ml -200 ml Course Sepsis Screening Results: Posi: NEGATIVE Sepsis Qualifier/Stage: NO DEFINITE RISK Vitals & review Data Vital Sign - Last 24 Hours 11/06/17 11/06/17 11/06/17 11/06/17 07:44 07:44 10:32 10:37 Temp 98 98.0 Pulse 81 59 58 Resp 16 16 16 B/P (MAP) 183/93 (123) 174/79 (110) 146/81 (102) Pulse Ox 96 99 99 O2 Delivery Room Air Room Air Nasal Canula Nasal Canula O2 Flow Rate 2 2 11/06/17 11/06/17 11/06/17 11/06/17 10:48 15:06 15:06 15:11 Temp 98.2 98.2 Pulse 54 72 72 Resp 16 19 16 B/P (MAP) 139/82 (101) 148/95 (112) 154/87 (109) Pulse Ox 100 98 98 O2 Delivery Nasal [place] Room Air Nasal [place] O2 Flow Rate 2 3 2 11/06/17 11/06/17 11/06/17 11/06/17 15:16 15:21 15:26 15:28 Pulse 70 72 74 70 Resp 16 16 16 B/P (MAP) 177/100 (125) 181/108 (132) 178/107 (130) 177/100 Pulse Ox 99 98 91 O2 Delivery Nasal Canula Nasal Canula Nasal Canula O2 Flow Rate 2 2 2 8/6/18 8/6/18 8/6/18 8/6/18 15:31 15:36 15:41 15:50 Temp 97.4 97.4 Pulse 70 69 73 174 Resp 16 16 16 B/P (MAP) 178/107 (130) 167/98 (121) 160/90 (113) 94/73 Pulse Ox 98 96 95 O2 Delivery Room Air Room Air Room Air 11/06/17 11/06/17 11/06/17 16:00 16:33 18:38 Pulse 72 Resp 16 16 B/P (MAP) 160/98 (118) Pulse Ox 96 95 O2 Delivery Room Air Room Air Laboratory Tests Test 11/06/17 08:00 11/06/17 17:52 White Blood Count 8.6 10^3/uL 13.0 10^3/uL Red Blood Count 4.99 10^6/uL 4.86 10^6/uL Hemoglobin 14.1 g/dL 13.7 g/dL Hematocrit 42.6 % 42.0 % Mean Corpuscular Volume 85.4 fL 86.4 fL Mean Corpuscular Hemoglobin 28.3 pg 28.2 pg Mean Corpuscular Hemoglobin Concent 33.1 g/dL 32.6 g/dL Red Cell Distribution Width 14.4 % 14.6 % Platelet Count 297 10^3/uL 278 10^3/uL Mean Platelet Volume 10.2 fL 10.1 fL Neutrophils (%) (Auto) 50.8 % Lymphocytes (%) (Auto) 36.4 % Monocytes (%) (Auto) 10.2 % Neutrophils # (Auto) 4.4 10^3/uL Lymphocytes # (Auto) 3.1 10^3/uL Monocytes # (Auto) 0.9 10^3/uL Absolute Immature Granulocyte (auto 0.03 10^3 u/L Eosinophils % 2.0 % Basophils % 0.3 % Basophils # 0.0 10^3/uL Eosinophil Count 0.2 10^3/uL Sodium Level 141 mmol/L Potassium Level 3.8 mmol/L Chloride Level 105.0 mmol/L Carbon Dioxide Level 22.1 mmol/L Glucose Level 122 mg/dL Blood Urea Nitrogen 13 mg/dL Creatinine 1.12 mg/dL Calcium Level 9.4 mg/dL Anion Gap 17.7 Estimated GFR () 79.1 BUN/Creatinine Ratio 11.0 Percent Immature Gran (Cell Imm) 0.30 % Current Medications Medications (Trade) Dose Ordered Sig/Akira PRN Reason Start Time Stop Time Status Last Admin Acetaminophen (Tylenol) 1,000 mg Q6H 11/06/17 09:00 12/06/17 08:59 Acetaminophen (Tylenol) 1,000 mg Q6H 11/06/17 15:30 12/06/17 15:29 11/06/17 16:28 Alprazolam (Xanax) 0.25 mg HS PRN INSOMNIA 11/06/17 15:30 12/06/17 15:29 Cefazolin Sodium 3 gm/Sodium Chloride 100 ml @ 100 mls/hr Q8H 11/06/17 16:00 11/07/17 08:59 11/06/17 16:27 Celecoxib (Celebrex) 200 mg Q12HR 11/06/17 21:00 11/06/17 21:01 Docusate Sodium (Colace) 100 mg DAILY 11/07/17 09:00 12/07/17 08:59 Famotidine (Pepcid) 20 mg DAILY 11/07/17 09:00 12/07/17 08:59 Gabapentin (Neurontin) 400 mg Q24HRS 11/07/17 09:00 11/07/17 09:01 Hydralazine HCl (Apresoline) 5 mg Q5MIN PRN HYPERTENSION 11/06/17 15:30 12/06/17 15:29 11/06/17 15:50 Hydromorphone HCl (Dilaudid) 0.2 mg Q5MIN PRN PAIN MILD 11/06/17 09:00 11/07/17 08:59 Hydromorphone HCl (Dilaudid) 1 mg Q4H PRN PAIN 11/06/17 16:30 12/06/17 16:29 Losartan Potassium (Cozaar) 100 mg DAILY 11/07/17 09:00 12/07/17 08:59 Meclizine HCl (Antivert) 25 mg TID PRN VERTIGO 11/06/17 15:30 12/06/17 15:29 Ondansetron HCl (Zofran) 4 mg PRN PRN nv 11/06/17 09:00 11/11/17 08:59 Promethazine HCl (Phenergan) 6.25 mg PRN PRN NAUSEA / VOMITING 11/06/17 09:00 11/11/17 08:59 Rivaroxaban (Xarelto) 10 mg DAILY 11/08/17 09:00 12/08/17 08:59 Scopolamine (Transderm-Scop) 1 each Q72H PRN DIZZINESS 11/06/17 15:30 12/06/17 15:29 Temazepam (Restoril) 15 mg HS 11/06/17 21:00 12/06/17 20:59 Throat Lozenges (Cepacol Sore Throat Lozenge) 1 each PRN PRN SORE THROAT 11/06/17 15:30 12/06/17 15:29 Tramadol HCl (Ultram) 50 mg Q4HR 11/06/17 16:00 12/06/17 15:59 11/06/17 16:27 Tramadol HCl (Ultram) 100 mg Q4HR PRN SEVERE PAIN 11/06/17 15:30 12/06/17 15:29 AUDREY REED MD Nov 07, 2017 18:28
[2017-11-07] MEDS: ULTRAM PO PRN (20:51)
[2017-11-07] MEDS: RESTORIL PO SCH (20:52)
[2017-11-07 21:00] VITALS: BP 148/77
[2017-11-08] MEDS: TYLENOL PO SCH ×5 (00:30→09:10)
[2017-11-08] MEDS: ULTRAM PO SCH ×3 (00:31→09:09)
[2017-11-08 01:30] VITALS: BP 95/58
[2017-11-08 04:39] VITALS: BP 131/79
[2017-11-08 05:46] LABS: HEMOGLOBIN 11.6 g/dL (13.9-16.3); MEAN CELL HGB 27.8 pg (26-34); MEAN CORP VOLUME 86.6 fL (78-100); RED CELL DISTRIBUTION WIDTH 14.9 % (11.5-14.5); WHITE BLOOD CELL 11.1 10^3/uL (4.5-11.0)
[2017-11-08 07:45] VITALS: BP 181/90
[2017-11-08] MEDS ORDERED: XARELTO PO SCH (09:00)
[2017-11-08] MEDS: LACTATED RINGERS 1,000 ML IV SCH ×3 (09:07→09:08)
[2017-11-08] MEDS: COZAAR PO SCH (09:09)
[2017-11-08] MEDS: PEPCID PO SCH (09:09)
[2017-11-08] MEDS: COLACE PO SCH (09:09)
--- NOTE | 2017-11-08 09:55 | PRM.PN ---
Subjective Subjective Date: Nov 08, 2017 Time: 09:53 Subjective Independent with PT and OT Pain ok Afebrile Wound ok Will dc HGB 11.6 postop anemia expected Appt 1 week Patient History: FH: migraines 19 CHILD No known health problems 19 CHILD 19 CHILD No Family History of: Alzheimer's disease Asthma Cerebrovascular disorder Chronic obstructive pulmonary disease Congestive heart failure Diabetes insipidus Diabetes mellitus Hypertension Parkinson's disease VTE VTE Risk Total Score: 4 VTE Risk Score VTE Risk: Score 0-1 = Low Risk (Aggressive mobilization; early ambulation; no VTE prophylaxis required) Score 2: Moderate Risk (Intermittent/Pneumatic Compression Device OR Lovenox/Heparin/Coumadin) Score 3-4: High Risk (Intermittent/Pneumatic Compression Device AND Lovenox/Heparin/Coumadin) Score > or =5: Highest Risk (Intermittent/Pneumatic Compression Device AND Lovenox/Heparin/Coumadin) Review of Systems Allergies: Coded Allergies: Sulfa (Sulfonamide Antibiotics) (Verified Allergy, Severe, Rash, 11/02/17) ciprofloxacin (Unverified Allergy, Unknown, Rash, 11/02/17) Scheduled Losartan Potassium (Losartan Potassium), 1 TAB PO DAILY, (Reported) Temazepam (Restoril), 1 CAP PO HS, (Reported) Scheduled PRN Alprazolam (Xanax), 0.5 TAB PO HS PRN for INSOMNIA, (Reported) Meclizine Hcl (Meclizine Hcl), 1 TAB PO TID PRN for VERTIGO, (Reported) Scopolamine (Transderm-Scop), 1 PATCH TP Q72H PRN for DIZZINESS, (Reported) Tramadol Hcl (Ultram), 1-2 TAB PO Q6 PRN for PAIN, (Reported) Discontinued Medications Aspirin (Aspirin Ec), 1 TAB PO BID, (Reported) Discontinued Reason: No Longer Taking Objective Vitals and I/O Vital Sign - Last 24 Hours 11/07/17 11/07/17 11/07/17 11/07/17 12:23 15:19 17:54 19:03 Temp 97.4 98.3 97.4 98.3 Pulse 54 58 Resp 18 18 B/P (MAP) 141/72 (95) 149/76 (100) Pulse Ox 95 96 O2 Delivery Room Air Room Air Room Air Room Air 11/07/17 11/07/17 11/08/17 11/08/17 21:00 21:41 01:30 04:39 Temp 98.5 97.4 98.0 98.5 97.4 98.0 Pulse 55 55 54 58 Resp 20 20 17 17 B/P (MAP) 148/77 (100) 95/58 (70) 131/79 (96) Pulse Ox 97 97 94 97 O2 Delivery Room Air Room Air Room Air Room Air 11/08/17 11/08/17 11/08/17 07:45 07:50 09:09 Temp 97.7 97.7 Pulse 58 Resp 18 B/P (MAP) 181/90 (120) 181/90 Pulse Ox 96 O2 Delivery Room Air Room Air Intake and Output 11/07/17 11/07/17 11/08/17 15:00 23:00 07:00 Intake Total 600 ml 500 ml 500 ml Output Total 700 ml 1100 ml Balance -100 ml 500 ml -600 ml Course Sepsis Screening Results: Posi: NEGATIVE Sepsis Qualifier/Stage: NO DEFINITE RISK Vitals & review Data Vital Sign - Last 24 Hours 11/06/17 11/06/17 11/06/17 11/06/17 07:44 07:44 10:32 10:37 Temp 98 98.0 Pulse 81 59 58 Resp 16 16 16 B/P (MAP) 183/93 (123) 174/79 (110) 146/81 (102) Pulse Ox 96 99 99 O2 Delivery Room Air Room Air Nasal Canula Nasal Canula O2 Flow Rate 2 2 11/06/17 11/06/17 11/06/17 11/06/17 10:48 15:06 15:06 15:11 Temp 98.2 98.2 Pulse 54 72 72 Resp 16 19 16 B/P (MAP) 139/82 (101) 148/95 (112) 154/87 (109) Pulse Ox 100 98 98 O2 Delivery Nasal Canula Room Air Nasal Canula O2 Flow Rate 2 3 2 11/06/17 11/06/17 11/06/17 11/06/17 15:16 15:21 15:26 15:28 Pulse 70 72 74 70 Resp 16 16 16 B/P (MAP) 177/100 (125) 181/108 (132) 178/107 (130) 177/100 Pulse Ox 99 98 91 O2 Delivery Nasal Canula Nasal Canula Nasal Canula O2 Flow Rate 2 2 2 11/06/17 11/06/17 11/06/17 11/06/17 15:31 15:36 15:41 15:50 Temp 97.4 97.4 Pulse 70 69 73 174 Resp 16 16 16 B/P (MAP) 178/107 (130) 167/98 (121) 160/90 (113) 94/73 Pulse Ox 98 96 95 O2 Delivery Room Air Room Air Room Air 11/06/17 11/06/17 11/06/17 16:00 16:33 18:38 Pulse 72 Resp 16 16 B/P (MAP) 160/98 (118) Pulse Ox 96 95 O2 Delivery Room Air Room Air Laboratory Tests Test 11/06/17 08:00 11/06/17 17:52 White Blood Count 8.6 10^3/uL 13.0 10^3/uL Red Blood Count 4.99 10^6/uL 4.86 10^6/uL Hemoglobin 14.1 g/dL 13.7 g/dL Hematocrit 42.6 % 42.0 % Mean Corpuscular Volume 85.4 fL 86.4 fL Mean Corpuscular Hemoglobin 28.3 pg 28.2 pg Mean Corpuscular Hemoglobin Concent 33.1 g/dL 32.6 g/dL Red Cell Distribution Width 14.4 % 14.6 % Platelet Count 297 10^3/uL 278 10^3/uL Mean Platelet Volume 10.2 fL 10.1 fL Neutrophils (%) (Auto) 50.8 % Lymphocytes (%) (Auto) 36.4 % Monocytes (%) (Auto) 10.2 % Neutrophils # (Auto) 4.4 10^3/uL Lymphocytes # (Auto) 3.1 10^3/uL Monocytes # (Auto) 0.9 10^3/uL Absolute Immature Granulocyte (auto 0.03 10^3 u/L Eosinophils % 2.0 % Basophils % 0.3 % Basophils # 0.0 10^3/uL Eosinophil Count 0.2 10^3/uL Sodium Level 141 mmol/L Potassium Level 3.8 mmol/L Chloride Level 105.0 mmol/L Carbon Dioxide Level 22.1 mmol/L Glucose Level 122 mg/dL Blood Urea Nitrogen 13 mg/dL Creatinine 1.12 mg/dL Calcium Level 9.4 mg/dL Anion Gap 17.7 Estimated GFR () 79.1 BUN/Creatinine Ratio 11.0 Percent Immature Gran (Cell Imm) 0.30 % Current Medications Medications (Trade) Dose Ordered Sig/Akira PRN Reason Start Time Stop Time Status Last Admin Acetaminophen (Tylenol) 1,000 mg Q6H 11/06/17 09:00 12/06/17 08:59 Acetaminophen (Tylenol) 1,000 mg Q6H 11/06/17 15:30 12/06/17 15:29 11/06/17 16:28 Alprazolam (Xanax) 0.25 mg HS PRN INSOMNIA 11/06/17 15:30 12/06/17 15:29 Cefazolin Sodium 3 gm/Sodium Chloride 100 ml @ 100 mls/hr Q8H 11/06/17 16:00 11/07/17 08:59 11/06/17 16:27 Celecoxib (Celebrex) 200 mg Q12HR 11/06/17 21:00 11/06/17 21:01 Docusate Sodium (Colace) 100 mg DAILY 11/07/17 09:00 12/07/17 08:59 Famotidine (Pepcid) 20 mg DAILY 11/07/17 09:00 12/07/17 08:59 Gabapentin (Neurontin) 400 mg Q24HRS 11/07/17 09:00 11/07/17 09:01 Hydralazine HCl (Apresoline) 5 mg Q5MIN PRN HYPERTENSION 11/06/17 15:30 12/06/17 15:29 11/06/17 15:50 Hydromorphone HCl (Dilaudid) 0.2 mg Q5MIN PRN PAIN MILD 11/06/17 09:00 11/07/17 08:59 Hydromorphone HCl (Dilaudid) 1 mg Q4H PRN PAIN 11/06/17 16:30 12/06/17 16:29 Losartan Potassium (Cozaar) 100 mg DAILY 11/07/17 09:00 12/07/17 08:59 Meclizine HCl (Antivert) 25 mg TID PRN VERTIGO 11/06/17 15:30 12/06/17 15:29 Ondansetron HCl (Zofran) 4 mg PRN PRN nv 11/06/17 09:00 11/11/17 08:59 Promethazine HCl (Phenergan) 6.25 mg PRN PRN NAUSEA / VOMITING 11/06/17 09:00 11/11/17 08:59 Rivaroxaban (Xarelto) 10 mg DAILY 11/08/17 09:00 12/08/17 08:59 Scopolamine (Transderm-Scop) 1 each Q72H PRN DIZZINESS 11/06/17 15:30 12/06/17 15:29 Temazepam (Restoril) 15 mg HS 11/06/17 21:00 12/06/17 20:59 Throat Lozenges (Cepacol Sore Throat Lozenge) 1 each PRN PRN SORE THROAT 11/06/17 15:30 12/06/17 15:29 Tramadol HCl (Ultram) 50 mg Q4HR 11/06/17 16:00 12/06/17 15:59 11/06/17 16:27 Tramadol HCl (Ultram) 100 mg Q4HR PRN SEVERE PAIN 11/06/17 15:30 12/06/17 15:29 AUDREY REDE MD Nov 08, 2017 09:55
--- NOTE | 2017-11-08 10:45 | NUR ---
HALLIE HEMPHILL PLACED ON PT AT THIS TIME
[2017-11-08] MEDS ORDERED: ASPI-655 PO (11:03)
--- NOTE | 2017-11-08 11:24 | NUR ---
DISCHARGE PT D/C AT THIS TIME. EDUCATED PT ON PAIN MEDICINE, HALLIE HOSE, AND PNE/DVT PREVENTION. PT STATES UNDERSTANDING. PT TAKEN TO PRIVATE VEHICLE IN W/C IN STABLE CONDITION.
[2017-11-08 11:27] VITALS: BP 181/90
--- NOTE | 2017-11-08 16:10 | DSH ---
DATE OF DISCHARGE: 11/08/2017 ADMITTING DIAGNOSIS: Osteoarthritis of the right knee. OTHER DIAGNOSES: Include anxiety and hypertension. DISCHARGE DIAGNOSES: Osteoarthritis of the right knee and postoperative anemia, expected. OPERATIVE PROCEDURE DATE: 11/06/2017. PROCEDURE PERFORMED: Right total knee arthroplasty SUMMARY OF ADMISSION: This is a 67-year-old male with end-stage osteoarthritis about the right knee. He was limited in his daily activities. X-rays showed severe [id number] appearance of the right knee. He was taken to the operating room for right total knee arthroplasty. The patient's procedure was performed on 11/06/2017. Postoperatively, he was awake and alert. Vital signs were stable and neurovascular exam is normal. He has had daily PT and OT. He has had Xarelto as well as foot pump, SCDs and early ambulation for DVT prophylaxis. The patient had minimal pain throughout the postoperative course. His wound is benign today. He is on a regular diet that he has tolerated well. His hemoglobin is 11.5. The patient will be discharged today on 11/08/2017. He will be instructed to use his walker and weightbear as tolerated. Will do therapy in ____ [place]. I will see him in my office in 1 week. He will take aspirin 81 mg twice a day for 1 month for DVT prophylaxis. Kiet Gonsalves MD DR: TANIKA/puma JOB# [id number]
== END 2017-11-08 11:30 | disposition home or self-care (01) | DRG 470 ==
LOC: MS 01:24 → EDPENDDISTM 11-08 11:27
PROVIDERS: ADMIT Orthopaedic Surgery; ATTEND Orthopaedic Surgery
PROC: 0SRC0J9 Replacement of Right Knee Joint with Synthetic Substitute, Cemented, Open Approach (ICD-10-PCS; principal; 2017-11-06 12:43)
DX: M17.11 Unilateral primary osteoarthritis, right knee (principal); D64.9 Anemia, unspecified; F41.9 Anxiety disorder, unspecified; I10 Essential (primary) hypertension; Z96.652 Presence of left artificial knee joint; Z88.2 Allergy status to sulfonamides; Z88.1 Allergy status to other antibiotic agents; Z85.46 Personal history of malignant neoplasm of prostate; Z84.89 Family history of other specified conditions
CPT/HCPCS: 27447; 36415; 64447; 64450; 64999; 71046; 73560; 80048; 85025; 85027; 87070; 93005; 97161; 97165; J0330; J0360; J0690; J1100; J2001; J2250; J2405; J2710; J2795; J3010; J3490; J7030; J7050; J7120; 97116-GP; 97760-GP; C1776; C9290; G8978-CJ; G8980-CI; G8987; G8988; J8499

== ENCOUNTER 2020-09-14 08:47 | Inpatient (IN) | payer MEDICARE ==
[2020-09-08 14:51] LABS: BASOPHIL % 0.5 % (0.0-0.2); EOSINOPHIL # 0.1 10^3/uL (0.0-0.2); EOSINOPHIL % 1.3 % (0.0-5.0); LYMPHOCYTES # 2.27 10^3/uL1 (1.0-4.8); LYMPHOCYTES % 26.4 % (24.0-44.0); MEAN CORP HGB 29.2 pg (26-34); MONOCYTES # 0.9 10^3/uL (0.3-0.8); MONOCYTES % 10.8 % (5.0-12.0); NEUTROPHIL # 5.2 10^3/uL (1.8-7.7); RED CELL DISTRIBUTION WIDTH 13.5 % (11.5-14.5)
[2020-09-08 15:15] LABS: CALCIUM 8.8 mg/dL (8.4-10.5); CARBON DIOXIDE 24.8 mmol/L (20.0-32)
--- NOTE | 2020-09-08 15:48 | PCM.EKG ---
[facility] Test Date: 2020-09-08 Test Time: 14:57:57 Pat Name: KIRA DOS SANTOS Department: Room: Gender: M Plumbing Contractor: MISTY : 1950 Requested By: AUDREY REED Order Number: [id number] Reading MD: Measurements Intervals Rarden Rate: 59 P: 79 MD: 176 QRS: 1 QRSD: 101 T: 32 QT: 424 QTc: 420 Interpretive Statements Sinus rhythm Low voltage, extremity leads Minimal ST elevation, anterior leads No previous ECG available for comparison Please click the below link to view image of tracing.
[2020-09-14] VITALS (12 sets, daily range): BP systolic 133–173; BP diastolic 69–97
[~2020-09-14] VITALS: Ht 172.7 cm; Wt 103.0 kg
[2020-09-14] MEDS: LACTATED RINGERS 1,000 ML IV SCH ×2 (08:45→21:02)
[~2020-09-14 08:47] MED LIST changes: +AMLO10TA4 PO; +ANCEF 2 GM in NS 100ML 100 ML IV ONE; +ANCEF ONE; +ASCO500C PO; +ASPI-929 PO; +BACTROBAN OINTMENT TP ONE; +CALC500T92 PO; +IBUP-1131 PO; +INUL2TAB4 PO; +LOSA100T14 PO; -LOSA100T6 PO; +MECL-95 PO; -MECL25TA3 PO; +NS 100ML 100 ML IV ONE; +TRAZ-163 PO; +VITA25006 PO; +ZINC50TA42 PO
[2020-09-14] MEDS ORDERED: LIDOCAINE 2% VIAL ONE (08:54)
[2020-09-14] MEDS ORDERED: DIPRIVAN IV ONE (08:54)
[2020-09-14] MEDS ORDERED: SUBLIMAZE ONE (08:55)
[2020-09-14] MEDS ORDERED: VERSED ONE (08:56)
[2020-09-14] MEDS ORDERED: ROCURONIUM BROMIDE IV ONE (08:57)
[2020-09-14] MEDS ORDERED: DECADRON ONE (08:58)
[2020-09-14] MEDS ORDERED: ZOFRAN ONE (08:58)
[2020-09-14] MEDS ORDERED: EPHEDRINE SULFATE ONE (08:59)
[2020-09-14] MEDS: COLACE PO SCH (09:00)
[2020-09-14] MEDS ORDERED: ULTRAM PO PRN (09:00)
[2020-09-14] MEDS ORDERED: CEPACOL SORE THROAT LOZENGE MM PRN (09:00)
[2020-09-14] MEDS ORDERED: LACTATED RINGERS 1,000 ML IV SCH (09:00)
--- NOTE | 2020-09-14 09:10 | PCM.HP ---
History of Present Illness Reason for Visit: (1) Osteoarthritis of right hip ICD Code: M16.11 - Unilateral primary osteoarthritis, right hip SNOMED: 754553820634260 (2) Osteoarthritis of right knee ICD Code: M17.11 - Unilateral primary osteoarthritis, right knee SNOMED: 645638951051912 Hx of Present Illness Patient complains of severe pain to the right hip for the past several months. Unable to control his pain with OTC pain medications. Patient states he can only walk short distances. Denies any injury. Nay has had bilateral knees done by Dr Gonsalves in the past. Patient lives in [place]. Travel History [place] RISK:Travel to/contact w: No Review of Systems Constitutional: No: Fever, Chills, Sweats, Weakness, Malaise, Other Eyes: No: Pain, Vision change, Conjunctivae inflammation, Eyelid inflammation, Other, Redness ENT: No: Ear pain, Ear discharge, Nose pain, Nose discharge, Nose congestion, Mouth pain, Mouth swelling, Throat pain, Throat swelling, Other Respiratory: No: Cough, Dry, Shortness of breath, SOB with excertion, Wheezing, Hemoptysis, Pleuritic Pain, Sputum, Wheezing, Other Cardiovascular: No: Chest Pain, Palpitations, Orthopnea, Paroxysmal Noc. Dyspnea, Edema, Lt Headedness, Other Gastrointestinal: No: Nausea, Vomiting, Abdominal Pain, Diarrhea, Constipation, Melena, Hematochezia, Other Genitourinary: No Dysuria, No Frequency, No Incontinence, No Hematuria, No Retention, No Other Musculoskeletal: other (right hip pain) Skin: No: Rash, Lesions, Jaundice, Bruising, Other Neurological: No: Weakness, Numbness, Incoordination, Change in speech, Confusion, Seizures, Other Allergies: Coded Allergies: Sulfa (Sulfonamide Antibiotics) (Verified Allergy, Severe, Rash, 09/10/20) ciprofloxacin (Unverified Allergy, Unknown, Rash, 09/10/20) Scheduled Amlodipine Besylate (Norvasc), 1 TAB PO HS, (Reported) Ascorbic Acid (Vitamin C), 1 CAP PO QD, (Reported) Calcium Carbonate (Calcium), 1 TAB PO DAILY24, (Reported) Ibuprofen (Ibuprofen), 1 TAB PO BID, (Reported) Inulin (Fiber Gummies), 2 TAB PO QD, (Reported) Losartan Potassium (Losartan Potassium), 1 TAB PO DAILY, (Reported) Vitamin D3/Folic Acid (Noxifol-D3 2,500 Unit-1 mg Tab), 1 TAB PO QD, (Reported) Zinc (Zinc), 1 TAB PO QD, (Reported) Scheduled PRN Trazodone Hcl (Trazodone Hcl), 0.5 TAB PO HS PRN for INSOMNIA, (Reported) Discontinued Medications Alprazolam (Xanax), 0.5 TAB PO HS PRN for INSOMNIA, (Reported) Discontinued Reason: No Longer Taking Aspirin (Aspirin Ec), 1 TAB PO BID, (Reported) Discontinued Reason: No Longer Taking Meclizine Hcl (Meclizine Hcl), 1 TAB PO TID PRN for VERTIGO, (Reported) Discontinued Reason: No Longer Taking Scopolamine (Transderm-Scop), 1 PATCH TP Q72H PRN for DIZZINESS, (Reported) Discontinued Reason: No Longer Taking Temazepam (Restoril), 1 CAP PO HS, (Reported) Discontinued Reason: No Longer Taking Tramadol Hcl (Ultram), 1-2 TAB PO Q6 PRN for PAIN, (Reported) Discontinued Reason: No Longer Taking VTE VTE Risk Total Score: 5 VTE Risk Score VTE Risk: Score 0-1 = Low Risk (Aggressive mobilization; early ambulation; no VTE prophylaxis required) Score 2: Moderate Risk (Intermittent/Pneumatic Compression Device OR Lovenox/Heparin/Coumadin) Score 3-4: High Risk (Intermittent/Pneumatic Compression Device AND Lovenox/Heparin/Coumadin) Score > or =5: Highest Risk (Intermittent/Pneumatic Compression Device AND Lovenox/Heparin/Coumadin) VTE VTE Present on Admission: No Currently receiving anticoagul: No VTE Risk Total Score: 5 Exam Vital Signs Vital Signs Date Time Temp Pulse Resp B/P (MAP) Pulse Ox O2 Delivery O2 Flow Rate FiO2 09/14/20 08:30 Room Air 09/14/20 08:30 98.3 55 16 163/82 (109) 98 General Appearance: Alert, Oriented X3, Cooperative, No acute distress HEENT: Atraumatic, PERRLA, EOMI, Mucous membr. moist/pink Respiratory: Clear to auscultation, Normal air movement Cardiovascular: Regular rate Abdominal: Normal bowel sounds, Soft, No tenderness Extremities: No clubbing, No cyanosis, No edema, Other (right hip pain) Skin: No rash, No breakdown, No lesions Neuro: Normal gait, Normal speech Psych/Mental Status: Mental status NL, Mood NL Assessment/Plan Assessment/Plan Problems: (1) Avascular necrosis of bone of right hip Status: Acute ICD Code: M87.051 - Idiopathic aseptic necrosis of right femur SNOMED: 698123778 (2) Osteoarthritis of right hip Status: Chronic ICD Code: M16.11 - Unilateral primary osteoarthritis, right hip SNOMED: 176051678409174 Patient History: FH: migraines 19 CHILD No known health problems 19 CHILD 19 CHILD No Family History of: Alzheimer's disease Asthma Cerebrovascular disorder Chronic obstructive pulmonary disease Congestive heart failure Diabetes insipidus Diabetes mellitus Hypertension Parkinson's disease Plan Right hip avascular necrosis- scheduled for right total hip replacement admit as inpatient continue medications as prescribed; PRN pain medications DVT prophylaxis- Xarelto starts tomorrow PT/OT eval and treat- WBAT RLE fall and safety precautions NAN WAY NP Sep 14, 2020 09:10
[2020-09-14] MEDS ORDERED: NS 250ML 250 ML IV ONE (09:25)
[2020-09-14] MEDS ORDERED: SODIUM CHLORIDE IRR BOTTLE IR ONE (09:25)
[2020-09-14] MEDS ORDERED: WATER ONE (09:25)
[2020-09-14] MEDS ORDERED: NS 3000ML IRR IR ONE (09:25)
[2020-09-14] MEDS ORDERED: TRANEXAMIC ACID ONE (10:25)
[2020-09-14] MEDS ORDERED: BRIDION IV ONE (11:10)
[2020-09-14] MEDS ORDERED: ANCEF 2 GM/D5W 50ML IV SCH (14:00)
[2020-09-14] MEDS ORDERED: TORADOL IV PRN (15:00)
[2020-09-14] MEDS ORDERED: ZOFRAN IV PRN (15:00)
--- NOTE | 2020-09-14 15:45 | NUR ---
RECEIVED RECEIVED PT AND ASSUMED CARE OF PT. DENIES COMPLAINTS.
--- NOTE | 2020-09-14 17:15 | DIREP ---
PROCEDURE:XRAY HIP MIN 2VW-RT COMPARISON:None. INDICATIONS:POST OP RIGHT TOTAL HIP REPLACMENT. FINDINGS: BONES:Two views of the right hip. The [place] right femoral head and neck have been surgically resected. Bipolar right hip arthroplasty. The stem of the femoral component is centrally seated within the shaft of the right proximal femur. No fracture of the right proximal femur is seen. Alignment is satisfactory JOINTS:Bipolar right hip arthroplasty. Mild DJD in the left hip. No subarticular cystic changes are seen on the left side. SOFT TISSUES:Postoperative air along the medial aspects of the proximal shaft of the right femur, likely postsurgical. OTHER:No additional findings. Surgical clips in the pelvis. CONCLUSION:Satisfactory postoperative appearance of the right hip arthroplasty. Satisfactory alignment. Dictated by: Gian Hoyt MD on 09/14/2020 at 05:11 PM
[2020-09-14] MEDS ORDERED: TYLENOL PO SCH (18:00)
[2020-09-14] MEDS ORDERED: DESYREL PO PRN (18:00)
--- NOTE | 2020-09-14 18:22 | OPH ---
DATE OF SURGERY: 09/14/2020 DICTATOR NAME: Kiet Gonsalves MD PREOPERATIVE DIAGNOSIS: Osteoarthritis of the right hip. POSTOPERATIVE DIAGNOSIS: Osteoarthritis of the right hip. OPERATIVE PROCEDURE: Right total hip arthroplasty using Medacta AMIS size 5 femoral component cemented, a size 54 Versafit cup with a 54 liner and a size 28 mm -3.5 ceramic head. SURGEON: Kiet Gonsalves MD. ANESTHESIA: General endotracheal. BLOOD LOSS: 400 mL. DRAINS: None. INDICATIONS: The patient is a 70-year-old male with a 1-1/2 year history of pain about the right hip. He complains of limping as well as pain. He can only walk about a block before having severe pain that limits his activities. The patient has taken [id number] pain medication including Tylenol and Advil. The patient's pain is markedly worse in the last several weeks. Exam shows that he has about 80 degrees of flexion of his right hip. He has very limited internal and external rotation. There is no particular shortening about the right leg. The MRI scan shows that he has [] of avascular necrosis about the femoral head with complete loss of the articular cartilage of the hip joint superiorly and laterally. The MRI scan was read out as having acute collapse of the femoral head. The patient was taken to the operating room today for total hip arthroplasty for pain relief. DESCRIPTION OF PROCEDURE: The patient was placed on the operating table in the supine position. A general endotracheal anesthetic was induced. The patient had the right foot and ankle well padded and placed in the traction boot. The patient then had the right lower extremity sterilely prepped and draped. The patient had an anterior incision made about the hip. The incision was taken through the skin and the subcutaneous tissues. Bleeding was controlled with cautery. The patient had the tensor fascia opened in line with the skin incision and the muscle belly was retracted posteriorly. The rectus fascia was opened and the rectus muscle was retracted medially. The circumflex vessels were identified and coagulated with the Aquamantys device. The fat pad over the capsule was excised. The capsular incision was made and the capsule was retracted proximally and medially. The patient had the femoral neck cut made. The femoral head was removed with a corkscrew device. The fovea was cleared of any soft tissue and the bleeding was coagulated with Aquamantys device. The labrum was excised. The patient had the acetabulum sequentially reamed up to a size 54. The 54 trial had a good fit clinically as well as radiographically. A 54 Versafit cup was then impacted into position. The C-arm views showed satisfactory version and tilt. The posterior ligaments were released as well as the anterior ligaments and capsule. The hip was placed in maximal external rotation as well as hyperextension. The patient had the canal opened with box chisel and subsequently with a small rasp. The large rasp was then used to open the canal more completely. The proximal femur was sequentially rasped up to a size 5. A trial reduction was done with a 5 femur with a short neck and the 54 liner. The hip had good stability clinically and radiographically, the sizing of the components appeared to be satisfactory as did the alignment. His leg lengths appeared appropriate. The trial components were removed from the hip. The canal brush was used to clear the canal. The patient then had the large cement restrictor placed at 13 cm below the femoral neck cut. The patient then had the canal re-irrigated with the irrigating canal brush. The tampon device was introduced and the canal was dried. The cement was then introduced and pressure packed. The size 5 femoral stem was then cemented into position. The excess cement was removed with curettes. The patient had another trial reduction done with the -3.5 neck and again there was satisfactory stability and satisfactory leg lengths. The trial components were removed. The trunnion was cleaned and dried. The -3.5 ceramic head with the 54 liner was then impacted onto the Barry taper neck. The hip was reduced. Again, there was good stability clinically and radiographically the components alignment was satisfactory and the sizing was satisfactory. The patient then had the joint irrigated with Betadine-containing solution for 3 minutes. The Betadine was then irrigated from the wound. The capsule was closed with #2 PDS in interrupted manner. The tensor fascia was closed with a #2-0 PDS barbed in a running manner. The subcutaneous was closed with a 2-0 barbed Monocryl in a running manner and the skin was closed with robert. A suction Prevena dressing was applied. The patient was extubated in the operating room and sent to recovery in stable condition. Kiet Gonsalves MD DR: TANIKA/MARCO ANTONIO/BEKAH RAMIREZ: [id number] RECEIPT: [id number]
--- NOTE | 2020-09-14 18:46 | NUR ---
REPORT REPORT TO ONCOMING SHIFT
[2020-09-14] MEDS: ULTRAM PO PRN (21:00)
[2020-09-14] MEDS: NORVASC PO SCH (21:01)
[2020-09-14] MEDS: ANCEF 2 GM/D5W 50ML 50 ML IV SCH (21:02)
[2020-09-14] MEDS: VITAMIN C PO SCH (21:23)
[2020-09-14] MEDS: PEPCID PO SCH (21:23)
[2020-09-15] MEDS: LACTATED RINGERS 1,000 ML IV SCH ×2 (02:00→12:00)
[2020-09-15] MEDS: TYLENOL PO SCH ×4 (03:56→18:01)
[2020-09-15] MEDS: ULTRAM PO PRN ×2 (03:56→20:55)
[2020-09-15 04:52] LABS: MEAN CORP HGB 28.9 pg (26-34); RED CELL DISTRIBUTION WIDTH 13.3 % (11.5-14.5)
[2020-09-15] MEDS: ANCEF 2 GM/D5W 50ML 50 ML IV SCH ×2 (05:06→12:00)
--- NOTE | 2020-09-15 05:20 | NUR ---
COVID SWAB PT REFUSED COVID SWAB Addendum: 09/15/20 at 0550 by JOSIE Montgomery RN WRONG PATIENT
[2020-09-15 07:18] VITALS: BP 134/72
[2020-09-15] MEDS: VITAMIN C PO SCH (08:38)
[2020-09-15] MEDS: PEPCID PO SCH (08:38)
[2020-09-15] MEDS: COZAAR PO SCH (08:38)
[2020-09-15] MEDS: COLACE PO SCH (08:38)
[2020-09-15] MEDS ORDERED: XARELTO PO SCH (09:00)
--- NOTE | 2020-09-15 09:03 | PRM.PN ---
Subjective Subjective Date: Sep 15, 2020 Time: 08:58 Subjective patient ambulating with walker, denies pain right hip dressing intact, no drainage noted states he slept well last night VSS labs reviewed; stable Patient History: FH: migraines 19 CHILD No known health problems 19 CHILD 19 CHILD No Family History of: Alzheimer's disease Asthma Cerebrovascular disorder Chronic obstructive pulmonary disease Congestive heart failure Diabetes insipidus Diabetes mellitus Hypertension Parkinson's disease VTE VTE Risk Total Score: >5 VTE Risk Score VTE Risk: Score 0-1 = Low Risk (Aggressive mobilization; early ambulation; no VTE prophylaxis required) Score 2: Moderate Risk (Intermittent/Pneumatic Compression Device OR Lovenox/Heparin/Coumadin) Score 3-4: High Risk (Intermittent/Pneumatic Compression Device AND Lovenox/Heparin/Coumadin) Score > or =5: Highest Risk (Intermittent/Pneumatic Compression Device AND Lovenox/Heparin/Coumadin) Review of Systems Constitutional: No: Fever, Chills, Sweats, Weakness, Malaise, Other Eyes: No: Pain, Vision change, Conjunctivae inflammation, Eyelid inflammation, Other, Redness ENT: No: Ear pain, Ear discharge, Nose pain, Nose discharge, Nose congestion, Mouth pain, Mouth swelling, Throat pain, Throat swelling, Other Respiratory: No: Cough, Dry, Shortness of breath, SOB with excertion, Wheezing, Hemoptysis, Pleuritic Pain, Sputum, Wheezing, Other Cardiovascular: No: Chest Pain, Palpitations, Orthopnea, Paroxysmal Noc. Dyspnea, Edema, Lt Headedness, Other Gastrointestinal: No: Nausea, Vomiting, Abdominal Pain, Diarrhea, Constipation, Melena, Hematochezia, Other Genitourinary: No Dysuria, No Frequency, No Incontinence, No Hematuria, No Retention, No Other Musculoskeletal: other (right hip pain) Skin: No: Rash, Lesions, Jaundice, Bruising, Other Neurological: No: Weakness, Numbness, Incoordination, Change in speech, Confusion, Seizures, Other Allergies: Coded Allergies: Sulfa (Sulfonamide Antibiotics) (Verified Allergy, Severe, Rash, 09/10/20) ciprofloxacin (Unverified Allergy, Unknown, Rash, 09/10/20) Scheduled Amlodipine Besylate (Norvasc), 1 TAB PO HS, (Reported) Ascorbic Acid (Vitamin C), 1 CAP PO QD, (Reported) Calcium Carbonate (Calcium), 1 TAB PO DAILY24, (Reported) Ibuprofen (Ibuprofen), 1 TAB PO BID, (Reported) Inulin (Fiber Gummies), 2 TAB PO QD, (Reported) Losartan Potassium (Losartan Potassium), 1 TAB PO DAILY, (Reported) Vitamin D3/Folic Acid (Noxifol-D3 2,500 Unit-1 mg Tab), 1 TAB PO QD, (Reported) Zinc (Zinc), 1 TAB PO QD, (Reported) Scheduled PRN Trazodone Hcl (Trazodone Hcl), 0.5 TAB PO HS PRN for INSOMNIA, (Reported) Discontinued Medications Alprazolam (Xanax), 0.5 TAB PO HS PRN for INSOMNIA, (Reported) Discontinued Reason: No Longer Taking Aspirin (Aspirin Ec), 1 TAB PO BID, (Reported) Discontinued Reason: No Longer Taking Meclizine Hcl (Meclizine Hcl), 1 TAB PO TID PRN for VERTIGO, (Reported) Discontinued Reason: No Longer Taking Scopolamine (Transderm-Scop), 1 PATCH TP Q72H PRN for DIZZINESS, (Reported) Discontinued Reason: No Longer Taking Temazepam (Restoril), 1 CAP PO HS, (Reported) Discontinued Reason: No Longer Taking Tramadol Hcl (Ultram), 1-2 TAB PO Q6 PRN for PAIN, (Reported) Discontinued Reason: No Longer Taking Objective Vitals and I/O Vital Sign - Last 24 Hours 09/14/20 09/14/20 09/14/20 09/14/20 14:29 14:35 14:40 14:45 Temp 98.3 Pulse 102 86 85 78 Resp 16 16 16 16 B/P (MAP) 163/79 (107) 160/85 (110) 133/80 (97) 162/86 (111) Pulse Ox 97 97 98 95 O2 Delivery Room Air Room Air Room Air Room Air 09/14/20 09/14/20 09/14/20 09/14/20 14:50 14:55 15:00 15:05 Pulse 78 78 77 82 Resp 16 16 16 16 B/P (MAP) 162/86 (111) 163/77 (105) 173/77 (109) 152/97 (115) Pulse Ox 95 95 93 93 O2 Delivery Room Air Room Air Room Air Room Air 09/14/20 09/14/20 09/14/20/14/21 15:10 15:15 15:20 16:50 Temp 99.0 99.0 98.8 Pulse 76 76 77 Resp 16 16 16 B/P (MAP) 163/74 (103) 157/69 (98) 152/93 (112) Pulse Ox 93 93 97 O2 Delivery Room Air Room Air Room Air Room Air 09/14/20 09/14/20 09/14/20 09/15/20 17:05 18:03 21:01 07:18 Temp 98.5 Pulse 77 80 66 Resp 18 18 19 B/P (MAP) 147/63 134/72 (92) Pulse Ox 97 97 97 O2 Delivery Room Air 09/15/20 08:38 B/P (MAP) 134/72 Intake and Output 09/15/20 07:00 Intake Total 7790 ml Output Total 925 ml Balance 6865 ml General: Alert, Oriented X3, Cooperative, No acute distress HEENT: Atraumatic, PERRLA, EOMI, Mucous membr. moist/pink Lungs: Clear to auscultation, Normal air movement Heart: Regular rate Abdomen: Normal bowel sounds, Soft, No tenderness Extremities: No clubbing, No cyanosis, No edema, Other (right hip dressing intact, neuros intact. Good range of motion to the hip with flexion and extension.) Neuro: Normal gait, Normal speech Psych/Mental Status: Mental status NL, Mood NL All Results(Lab/Rad) Laboratory Tests Test 09/15/20 04:20 White Blood Count 12.9 10^3/uL Red Blood Count 3.98 10^6/uL Hemoglobin 11.5 g/dL Hematocrit 35.8 % Mean Corpuscular Volume 89.9 fL Mean Corpuscular Hemoglobin 28.9 pg Mean Corpuscular Hemoglobin Concent 32.1 g/dL Red Cell Distribution Width 13.3 % Platelet Count 221 10^3/uL Mean Platelet Volume 10.3 fL Current Medications Medications (Trade) Dose Ordered Sig/Akira Route PRN Reason Start Time Stop Time Status Last Admin Dose Admin Cefazolin Sodium 2 gm/Sodium Chloride 100 ml @ 100 mls/hr OT ONCE IV 09/14/20 06:00 09/14/20 10:02 DC Mupirocin (Bactroban Ointment) 1 gm OT ONCE TP 09/14/20 06:00 09/14/20 09:58 DC 09/14/20 09:00 Sodium Chloride 100 ml @ ud STK-MED ONCE IV 09/11/20 10:35 09/11/20 10:36 DC Cefazolin Sodium (Ancef) 1 gm STK-MED ONCE .ROUTE 09/11/20 10:35 09/11/20 10:36 DC Propofol (Diprivan) 200 mg STK-MED ONCE IV 09/14/20 08:54 09/14/20 08:54 DC Lidocaine HCl (Lidocaine 2% Vial) 500 mg STK-MED ONCE .ROUTE 09/14/20 08:54 09/14/20 08:55 DC Fentanyl Citrate (Sublimaze) 50 mcg STK-MED ONCE .ROUTE 09/14/20 08:55 09/14/20 08:55 DC Rocuronium [place] (Rocuronium [place]) 50 mg STK-MED ONCE IV 09/14/20 08:57 09/14/20 08:57 DC Ondansetron HCl (Zofran) 4 mg STK-MED ONCE .ROUTE 09/14/20 08:58 09/14/20 08:58 DC Ephedrine Sulfate (Ephedrine Sulfate) 50 mg STK-MED ONCE .ROUTE 09/14/20 08:59 09/14/20 08:59 DC Tramadol HCl (Ultram) 50 mg Q6H PRN PO PAIN 4 - 6 09/14/20 09:00 10/14/20 08:59 09/15/20 03:56 Tramadol HCl (Ultram) 100 mg Q6H PRN PO PAIN 7 - 10 09/14/20 09:00 10/14/20 08:59 Rivaroxaban (Xarelto) 10 mg DAILY PO 09/15/20 09:00 09/14/20 14:53 DC Docusate Sodium (Colace) 100 mg DAILY PO 09/14/20 09:00 10/14/20 08:59 09/15/20 08:38 Throat Lozenges (Cepacol Sore Throat Lozenge) 1 each PRN PRN MM SORE THROAT 09/14/20 09:00 10/14/20 08:59 Famotidine (Pepcid) 20 mg DAILY PO 09/14/20 09:00 10/14/20 08:59 09/15/20 08:38 Cefazolin Sodium/ Dextrose (Ancef 2 Gm/D5W 50ml) 2 gm Q8 IV 09/14/20 14:00 09/14/20 10:12 DC Sodium Chloride (Sodium Chloride Irr Bottle) 1,000 ml STK-MED ONCE IR 09/14/20 09:25 09/14/20 09:25 DC Sterile Water (Water) 1,000 ml STK-MED ONCE .ROUTE 09/14/20 09:25 09/14/20 09:25 DC Sodium Chloride 250 ml @ ud STK-MED ONCE IV 09/14/20 09:25 09/14/20 09:25 DC Sodium Chloride (NS 3000ml Irr) 3,000 ml STK-MED ONCE IR 09/14/20 09:25 09/14/20 09:25 DC Cefazolin Sodium/ Dextrose 50 ml @ 50 mls/hr Q8H IV 09/14/20 20:00 09/15/20 12:59 09/15/20 05:06 Tranexamic Acid (Tranexamic Acid) 1,000 mg STK-MED ONCE .ROUTE 09/14/20 10:25 09/14/20 10:25 DC Rivaroxaban (Xarelto) 10 mg DAILY PO 09/15/20 15:00 10/15/20 14:59 Acetaminophen (Tylenol) 1,000 mg Q6HR PO 09/14/20 18:00 09/15/20 00:53 DC 09/14/20 21:01 Ketorolac Tromethamine (Toradol) 15 mg Q6H PRN IV PAIN 4 - 6 09/14/20 15:00 09/19/20 14:59 Ondansetron HCl (Zofran) 4 mg Q4H PRN IV NAUSEA / VOMITING 09/14/20 15:00 10/14/20 14:59 Amlodipine Besylate (Norvasc) 10 mg HS PO 09/14/20 21:00 10/14/20 20:59 09/14/20 21:01 Losartan Potassium (Cozaar) 100 mg DAILY PO 09/15/20 09:00 10/15/20 08:59 09/15/20 08:38 Trazodone HCl (Desyrel) 25 mg HS PRN PO INSOMNIA 09/14/20 18:00 10/14/20 17:59 Ascorbic Acid (Vitamin C) 500 mg QD PO 09/14/20 09:00 10/14/20 08:59 09/15/20 08:38 Acetaminophen (Tylenol) 1,000 mg Q6HR PO 09/15/20 03:00 10/15/20 02:59 09/15/20 03:56 Course Sepsis Screening Results: Posi: NEGATIVE Sepsis Qualifier/Stage: NO DEFINITE RISK Vitals & review Data Vital Sign - Last 24 Hours 09/14/20 09/14/20 09/14/20 09/14/20 14:29 14:35 14:40 14:45 Temp 98.3 Pulse 102 86 85 78 Resp 16 16 16 16 B/P (MAP) 163/79 (107) 160/85 (110) 133/80 (97) 162/86 (111) Pulse Ox 97 97 98 95 O2 Delivery Room Air Room Air Room Air Room Air 09/14/20 09/14/20 09/14/20 09/14/20 14:50 14:55 15:00 15:05 Pulse 78 78 77 82 Resp 16 16 16 16 B/P (MAP) 162/86 (111) 163/77 (105) 173/77 (109) 152/97 (115) Pulse Ox 95 95 93 93 O2 Delivery Room Air Room Air Room Air Room Air 09/14/20 09/14/20 09/14/20 09/14/20 15:10 15:15 15:20 16:50 Temp 99.0 99.0 98.8 Pulse 76 76 77 Resp 16 16 16 B/P (MAP) 163/74 (103) 157/69 (98) 152/93 (112) Pulse Ox 93 93 97 O2 Delivery Room Air Room Air Room Air Room Air 09/14/20 09/14/20 09/14/20 09/15/20 17:05 18:03 21:01 07:18 Temp 98.5 Pulse 77 80 66 Resp 18 18 19 B/P (MAP) 147/63 134/72 (92) Pulse Ox 97 97 97 O2 Delivery Room Air 09/15/20 08:38 B/P (MAP) 134/72 Intake and Output 09/15/20 07:00 Intake Total 7790 ml Output Total 925 ml Balance 6865 ml Laboratory Tests Test 09/15/20 04:20 White Blood Count 12.9 10^3/uL Red Blood Count 3.98 10^6/uL Hemoglobin 11.5 g/dL Hematocrit 35.8 % Mean Corpuscular Volume 89.9 fL Mean Corpuscular Hemoglobin 28.9 pg Mean Corpuscular Hemoglobin Concent 32.1 g/dL Red Cell Distribution Width 13.3 % Platelet Count 221 10^3/uL Mean Platelet Volume 10.3 fL Current Medications Medications (Trade) Dose Ordered Sig/Akira PRN Reason Start Time Stop Time Status Last Admin Acetaminophen (Tylenol) 1,000 mg Q6HR 09/15/20 03:00 10/15/20 02:59 09/15/20 03:56 Amlodipine Besylate (Norvasc) 10 mg HS 09/14/20 21:00 10/14/20 20:59 09/14/20 21:01 Ascorbic Acid (Vitamin C) 500 mg QD 09/14/20 09:00 10/14/20 08:59 09/15/20 08:38 Cefazolin Sodium/ Dextrose 50 ml @ 50 mls/hr Q8H 09/14/20 20:00 09/15/20 12:59 09/15/20 05:06 Docusate Sodium (Colace) 100 mg DAILY 09/14/20 09:00 10/14/20 08:59 09/15/20 08:38 Famotidine (Pepcid) 20 mg DAILY 09/14/20 09:00 10/14/20 08:59 09/15/20 08:38 Ketorolac Tromethamine (Toradol) 15 mg Q6H PRN PAIN 4 - 6 09/14/20 15:00 09/19/20 14:59 Losartan Potassium (Cozaar) 100 mg DAILY 09/15/20 09:00 10/15/20 08:59 09/15/20 08:38 Ondansetron HCl (Zofran) 4 mg Q4H PRN NAUSEA / VOMITING 09/14/20 15:00 10/14/20 14:59 Rivaroxaban (Xarelto) 10 mg DAILY 09/15/20 15:00 10/15/20 14:59 Throat Lozenges (Cepacol Sore Throat Lozenge) 1 each PRN PRN SORE THROAT 09/14/20 09:00 10/14/20 08:59 Tramadol HCl (Ultram) 50 mg Q6H PRN PAIN 4 - 6 09/14/20 09:00 10/14/20 08:59 09/15/20 03:56 Tramadol HCl (Ultram) 100 mg Q6H PRN PAIN 7 - 10 09/14/20 09:00 10/14/20 08:59 Trazodone HCl (Desyrel) 25 mg HS PRN INSOMNIA 09/14/20 18:00 10/14/20 17:59 LEVEL 1 SEPSIS INFECTION CRITE: ABX Therapy, Recent Invasive Procedure LEVEL 2-SIRS (LIST ALL THAT AP: WBC>[id number] Cardiovascular Evidence: Not Assessed or None Hematologic Evidence: None/Not assessed Hepatic Evidence: None/Not assessed Metabolic Evidence: None/Not assessed Neurological Evidence: None/Not assessed Respiratory Evidence: None/Not assessed Renal Evidence: None/Not assessed O2 Sat by Pulse Oximetry: 97 Assessment/Plan Assessment/Plan Problems: (1) Osteoarthritis of right hip Status: Chronic ICD Code: M16.11 - Unilateral primary osteoarthritis, right hip SNOMED: [id number] Plan Right hip avascular necrosis- right total hip arthroplasty POD #1 continue medications as prescribed; PRN pain medications DVT prophylaxis- Xarelto daily PT/OT eval and treat- WBAT RLE fall and safety precautions NAN WAY NP Sep 15, 2020 09:03
--- NOTE | 2020-09-15 11:18 | NUR ---
DISCHARGE PLANNING CM VISITED WITH PATIENT AND SPOUSE ABOUT DISCHARGE PLANS AND NEEDS. PATIENT CURRENTLY LIVES @HOME WITH SPOUSE. IND WITH [facility]. PATIENT HAS A WALKER AND SHOWER CHAIR @HOME. DENIES NEED FOR ANY OTHER MEDICAL EQUIPMENT. PATIENT LIVES IN [facility] AND PLANS TO DISCHARGE HOME WITH SPOUSE TO SELF CARE. PATIENT EDUCATED ON RESOURCES AVAILABLE. DENIES NEED FOR ANY SERVICES AND SIGNS [facility] CHOICE LETTER OF THE SAME. DENIES ANY OTHER CM NEEDS.
[2020-09-15 11:35] VITALS: BP 135/76
[2020-09-15] MEDS ORDERED: ANCEF 2 GM/D5W 50ML 50 ML IV ONE (14:06)
[2020-09-15] MEDS: XARELTO PO SCH (15:00)
[2020-09-15 16:18] VITALS: BP 144/81
[2020-09-15 20:49] VITALS: BP 130/71
[2020-09-15] MEDS: NORVASC PO SCH (20:54)
[2020-09-16 00:03] VITALS: BP 130/74
[2020-09-16] MEDS: TYLENOL PO SCH ×3 (01:25→07:00)
[2020-09-16 04:01] VITALS: BP 128/67
[2020-09-16] MEDS: ULTRAM PO PRN (04:05)
[2020-09-16 05:20] LABS: MEAN CORP HGB 29.4 pg (26-34); RED CELL DISTRIBUTION WIDTH 13.6 % (11.5-14.5)
[2020-09-16 07:23] VITALS: BP 133/73
[2020-09-16] MEDS ORDERED: TRAM50TA PO (08:56)
[2020-09-16] MEDS ORDERED: ASPI-929 PO (08:56)
--- NOTE | 2020-09-16 09:00 | PRM.DC ---
Discharge Summary Date of Discharge: Sep 16, 2020 Time of Request to Discharge: 08:57 Additional Comments patient sitting in chair right hip dressing intact pain controlled VSS ambulated hallway 300 ft yesterday with PT no new concerns. Patient History: FH: migraines 19 CHILD No known health problems 19 CHILD 19 CHILD No Family History of: Alzheimer's disease Asthma Cerebrovascular disorder Chronic obstructive pulmonary disease Congestive heart failure Diabetes insipidus Diabetes mellitus Hypertension Parkinson's disease General: Alert, Oriented X3, Cooperative, No acute distress HEENT: Atraumatic, PERRLA, EOMI, Mucous membr. moist/pink Neck: Supple Lungs: Clear to auscultation Heart: Regular rate, Normal S1, Normal S2 Abdomen: Normal bowel sounds, Soft, No tenderness Extremities: No clubbing, No cyanosis, Other (right hip dressing intact, patient demonstrates full extension and 120 degrees flexion. Neuros intact) Skin: No rashes, No breakdown Neuro: Normal gait, Normal speech Psych/Mental Status: Mental status NL, Mood NL Scheduled Amlodipine Besylate (Norvasc), 1 TAB PO HS, (Reported) Ascorbic Acid (Vitamin C), 1 CAP PO QD, (Reported) Aspirin (Aspirin Ec), 81 MG PO BID Calcium Carbonate (Calcium), 1 TAB PO DAILY24, (Reported) Ibuprofen (Ibuprofen), 1 TAB PO BID, (Reported) Inulin (Fiber Gummies), 2 TAB PO QD, (Reported) Losartan Potassium (Losartan Potassium), 1 TAB PO DAILY, (Reported) Vitamin D3/Folic Acid (Noxifol-D3 2,500 Unit-1 mg Tab), 1 TAB PO QD, (Reported) Zinc (Zinc), 1 TAB PO QD, (Reported) Scheduled PRN Tramadol Hcl (Tramadol Hcl), 50 MG PO Q6H PRN for PAIN 4 - 6 Trazodone Hcl (Trazodone Hcl), 0.5 TAB PO HS PRN for INSOMNIA, (Reported) Discontinued Medications Alprazolam (Xanax), 0.5 TAB PO HS PRN for INSOMNIA, (Reported) Discontinued Reason: No Longer Taking Aspirin (Aspirin Ec), 1 TAB PO BID, (Reported) Discontinued Reason: No Longer Taking Meclizine Hcl (Meclizine Hcl), 1 TAB PO TID PRN for VERTIGO, (Reported) Discontinued Reason: No Longer Taking Scopolamine (Transderm-Scop), 1 PATCH TP Q72H PRN for DIZZINESS, (Reported) Discontinued Reason: No Longer Taking Temazepam (Restoril), 1 CAP PO HS, (Reported) Discontinued Reason: No Longer Taking Tramadol Hcl (Ultram), 1-2 TAB PO Q6 PRN for PAIN, (Reported) Discontinued Reason: No Longer Taking Sepsis Evaluation @ Discharge Vital Sign - Last 24 Hours 09/14/20 09/14/20 09/14/20 09/14/20 14:29 14:35 14:40 14:45 Temp 98.3 Pulse 102 86 85 78 Resp 16 16 16 16 B/P (MAP) 163/79 (107) 160/85 (110) 133/80 (97) 162/86 (111) Pulse Ox 97 97 98 95 O2 Delivery Room Air Room Air Room Air Room Air 09/14/20 09/14/20 09/14/20 09/14/20 14:50 14:55 15:00 15:05 Pulse 78 78 77 82 Resp 16 16 16 16 B/P (MAP) 162/86 (111) 163/77 (105) 173/77 (109) 152/97 (115) Pulse Ox 95 95 93 93 O2 Delivery Room Air Room Air Room Air Room Air 09/14/20 09/14/20 09/14/20 09/14/20 15:10 15:15 15:20 16:50 Temp 99.0 99.0 98.8 Pulse 76 76 77 Resp 16 16 16 B/P (MAP) 163/74 (103) 157/69 (98) 152/93 (112) Pulse Ox 93 93 97 O2 Delivery Room Air Room Air Room Air Room Air 09/14/20 09/14/20 09/14/20 09/15/20 17:05 18:03 21:01 07:18 Temp 98.5 Pulse 77 80 66 Resp 18 18 19 B/P (MAP) 147/63 134/72 (92) Pulse Ox 97 97 97 O2 Delivery Room Air 09/15/20 08:38 B/P (MAP) 134/72 Intake and Output 09/15/20 07:00 Intake Total 7790 ml Output Total 925 ml Balance 6865 ml Laboratory Tests Test 09/15/20 04:20 White Blood Count 12.9 10^3/uL Red Blood Count 3.98 10^6/uL Hemoglobin 11.5 g/dL Hematocrit 35.8 % Mean Corpuscular Volume 89.9 fL Mean Corpuscular Hemoglobin 28.9 pg Mean Corpuscular Hemoglobin Concent 32.1 g/dL Red Cell Distribution Width 13.3 % Platelet Count 221 10^3/uL Mean Platelet Volume 10.3 fL Current Medications Medications (Trade) Dose Ordered Sig/Akira PRN Reason Start Time Stop Time Status Last Admin Acetaminophen (Tylenol) 1,000 mg Q6HR 09/15/20 03:00 10/15/20 02:59 09/15/20 03:56 Amlodipine Besylate (Norvasc) 10 mg HS 09/14/20 21:00 10/14/20 20:59 09/14/20 21:01 Ascorbic Acid (Vitamin C) 500 mg QD 09/14/20 09:00 10/14/20 08:59 09/15/20 08:38 Cefazolin Sodium/ Dextrose 50 ml @ 50 mls/hr Q8H 09/14/20 20:00 09/15/20 12:59 09/15/20 05:06 Docusate Sodium (Colace) 100 mg DAILY 09/14/20 09:00 10/14/20 08:59 09/15/20 08:38 Famotidine (Pepcid) 20 mg DAILY 09/14/20 09:00 10/14/20 08:59 09/15/20 08:38 Ketorolac Tromethamine (Toradol) 15 mg Q6H PRN PAIN 4 - 6 09/14/20 15:00 09/19/20 14:59 Losartan Potassium (Cozaar) 100 mg DAILY 09/15/20 09:00 10/15/20 08:59 09/15/20 08:38 Ondansetron HCl (Zofran) 4 mg Q4H PRN NAUSEA / VOMITING 09/14/20 15:00 10/14/20 14:59 Rivaroxaban (Xarelto) 10 mg DAILY 09/15/20 15:00 10/15/20 14:59 Throat Lozenges (Cepacol Sore Throat Lozenge) 1 each PRN PRN SORE THROAT 09/14/20 09:00 10/14/20 08:59 Tramadol HCl (Ultram) 50 mg Q6H PRN PAIN 4 - 6 09/14/20 09:00 7/14/21 08:59 09/15/20 03:56 Tramadol HCl (Ultram) 100 mg Q6H PRN PAIN 7 - 10 09/14/20 09:00 10/14/20 08:59 Trazodone HCl (Desyrel) 25 mg HS PRN INSOMNIA 09/14/20 18:00 10/14/20 17:59 Course Sepsis Screening Results: Posi: NEGATIVE Sepsis Qualifier/Stage: NO DEFINITE RISK Vitals & review Data Vital Sign - Last 24 Hours 09/14/20 09/14/20 09/14/20 09/14/20 14:29 14:35 14:40 14:45 Temp 98.3 Pulse 102 86 85 78 Resp 16 16 16 16 B/P (MAP) 163/79 (107) 160/85 (110) 133/80 (97) 162/86 (111) Pulse Ox 97 97 98 95 O2 Delivery Room Air Room Air Room Air Room Air 09/14/20 09/14/20 09/14/20 09/14/20 14:50 14:55 15:00 15:05 Pulse 78 78 77 82 Resp 16 16 16 16 B/P (MAP) 162/86 (111) 163/77 (105) 173/77 (109) 152/97 (115) Pulse Ox 95 95 93 93 O2 Delivery Room Air Room Air Room Air Room Air 09/14/20 09/14/20 09/14/20 09/14/20 15:10 15:15 15:20 16:50 Temp 99.0 99.0 98.8 Pulse 76 76 77 Resp 16 16 16 B/P (MAP) 163/74 (103) 157/69 (98) 152/93 (112) Pulse Ox 93 93 97 O2 Delivery Room Air Room Air Room Air Room Air 09/14/20 09/14/20 09/14/20 09/15/20 17:05 18:03 21:01 07:18 Temp 98.5 Pulse 77 80 66 Resp 18 18 19 B/P (MAP) 147/63 134/72 (92) Pulse Ox 97 97 97 O2 Delivery Room Air 09/15/20 08:38 B/P (MAP) 134/72 Intake and Output 09/15/20 07:00 Intake Total 7790 ml Output Total 925 ml Balance 6865 ml Laboratory Tests Test 09/15/20 04:20 White Blood Count 12.9 10^3/uL Red Blood Count 3.98 10^6/uL Hemoglobin 11.5 g/dL Hematocrit 35.8 % Mean Corpuscular Volume 89.9 fL Mean Corpuscular Hemoglobin 28.9 pg Mean Corpuscular Hemoglobin Concent 32.1 g/dL Red Cell Distribution Width 13.3 % Platelet Count 221 10^3/uL Mean Platelet Volume 10.3 fL Current Medications Medications (Trade) Dose Ordered Sig/Akira PRN Reason Start Time Stop Time Status Last Admin Acetaminophen (Tylenol) 1,000 mg Q6HR 09/15/20 03:00 10/15/20 02:59 09/15/20 03:56 Amlodipine Besylate (Norvasc) 10 mg HS 09/14/20 21:00 10/14/20 20:59 09/14/20 21:01 Ascorbic Acid (Vitamin C) 500 mg QD 09/14/20 09:00 10/14/20 08:59 09/15/20 08:38 Cefazolin Sodium/ Dextrose 50 ml @ 50 mls/hr Q8H 09/14/20 20:00 09/15/20 12:59 09/15/20 05:06 Docusate Sodium (Colace) 100 mg DAILY 09/14/20 09:00 10/14/20 08:59 09/15/20 08:38 Famotidine (Pepcid) 20 mg DAILY 09/14/20 09:00 10/14/20 08:59 09/15/20 08:38 Ketorolac Tromethamine (Toradol) 15 mg Q6H PRN PAIN 4 - 6 09/14/20 15:00 09/19/20 14:59 Losartan Potassium (Cozaar) 100 mg DAILY 09/15/20 09:00 10/15/20 08:59 09/15/20 08:38 Ondansetron HCl (Zofran) 4 mg Q4H PRN NAUSEA / VOMITING 09/14/20 15:00 10/14/20 14:59 Rivaroxaban (Xarelto) 10 mg DAILY 09/15/20 15:00 10/15/20 14:59 Throat Lozenges (Cepacol Sore Throat Lozenge) 1 each PRN PRN SORE THROAT 09/14/20 09:00 10/14/20 08:59 Tramadol HCl (Ultram) 50 mg Q6H PRN PAIN 4 - 6 09/14/20 09:00 10/14/20 08:59 09/15/20 03:56 Tramadol HCl (Ultram) 100 mg Q6H PRN PAIN 7 - 10 09/14/20 09:00 10/14/20 08:59 Trazodone HCl (Desyrel) 25 mg HS PRN INSOMNIA 09/14/20 18:00 10/14/20 17:59 LEVEL 1 SEPSIS INFECTION CRITE: ABX Therapy, Recent Invasive Procedure LEVEL 2-SIRS (LIST ALL THAT AP: [id number] Cardiovascular Evidence: Not Assessed or None Hematologic Evidence: None/Not assessed Hepatic Evidence: None/Not assessed Metabolic Evidence: None/Not assessed Neurological Evidence: None/Not assessed Respiratory Evidence: None/Not assessed Renal Evidence: None/Not assessed O2 Sat by Pulse Oximetry: 92 Plan Problems: (1) Osteoarthritis of right hip Status: Chronic ICD Code: M16.11 - Unilateral primary osteoarthritis, right hip SNOMED: 387805316832893 (2) HTN (hypertension) Status: Chronic ICD Code: I10 - Essential (primary) hypertension SNOMED: 79626351 Assessment & Plan: stable and continue (3) Anxiety Status: Chronic ICD Code: F41.9 - Anxiety disorder, unspecified SNOMED: 75026452 Assessment & Plan: stable and continue Discharge Date: Sep 16, 2020 Discharge Disposition: Stable Plan 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
[2020-09-16] MEDS: XARELTO PO SCH (09:07)
[2020-09-16] MEDS: PEPCID PO SCH (09:07)
[2020-09-16] MEDS: VITAMIN C PO SCH (09:07)
[2020-09-16] MEDS: COZAAR PO SCH (09:07)
[2020-09-16] MEDS: COLACE PO SCH (09:07)
[2020-09-16] MEDS: LACTATED RINGERS 1,000 ML IV SCH ×2 (09:18→09:19)
--- NOTE | 2020-09-16 11:15 | NUR ---
DISCHARGE PT WAS EDUCATED ON HOME CARE OF INCISION, NEW MEDICATIONS, S/S OF DVT; S/S OF INFECTION, ALLERGIC REACTION, AND ANY COMPLICATIONS THAT REQUIRE EMERGENT CARE. PT SHOWED NO S/S OF DISTRESS OR DISCOMFORT, IV WAS D/C. PT WAS HELPED OFF THE UNIT VIA WHEELCHAIR BY HOSPITAL STAFF AND HELPED TO AMBULATE INTO A PERSONAL VEHICLE WITH HIS . PT CARE WAS RELINQUISHED AT THIS TIME.
[2020-09-16 12:04] VITALS: BP 138/71
== END 2020-09-16 11:15 | disposition home or self-care (01) | DRG 470 ==
LOC: MS 08:47
PROVIDERS: ADMIT Orthopaedic Surgery; ATTEND Orthopaedic Surgery
PROC: 0SR9039 Replacement of Right Hip Joint with Ceramic Synthetic Substitute, Cemented, Open Approach (ICD-10-PCS; principal; 2020-09-14 11:37)
DX: M16.11 Unilateral primary osteoarthritis, right hip (principal); M87.051 Idiopathic aseptic necrosis of right femur; I10 Essential (primary) hypertension; F41.9 Anxiety disorder, unspecified; M17.11 Unilateral primary osteoarthritis, right knee; Z88.2 Allergy status to sulfonamides; Z88.1 Allergy status to other antibiotic agents; Z79.4 Long term (current) use of insulin; Z79.899 Other long term (current) drug therapy
CPT/HCPCS: 36415; 73502; 76000; 80053; 85025; 85027; 87070; 93005; 97162; 97165; 97530; A4217; C1713; G0378; J0690; J1100; J2001; J2250; J2405; J3010; J3490; J7050; J7120; 97116-GP; C1776